=== PATIENT | male | born 1955 | race Caucasian/White ===

== ENCOUNTER 2025-01-25 13:19 | Outpatient (AMB) | payer MEDICARE, MEDICAID, SELFPAY ==
--- NOTE | 2025-01-25 13:22 | A.OFFVIS_ITS ---
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 He was doing ok. No seizure reported. He is presenting for follow-up management of tremor. The patient experiences significant shaking, particularly of the head, which is exacerbated when feeling put on the spot and during activities such as eating, making it difficult to hold utensils or a cup. The patient has a history of unilateral weakness, which causes the neck to twist and the body to lean to one side. Past medical history is significant for atrial fibrillation, for which the patient has a pacemaker, and manageable COPD. The patient continues to smoke. Current medications include baclofen taken as two pills at bedtime, diazepam 2 mg which helps with sleep and spasticity but wears off around 3 a.m., levetiracetam, and gabapentin. Review of Systems Narrative - Neurological: Reports head shaking and hand tremor, worse with action such as eating. - Reports difficulty sleeping, with awakenings around 3 or 3:30 a.m. - Reports being unable to walk or use an arm. - Respiratory: Reports COPD symptoms are about the same and manageable. - Denies shortness of breath. - Cardiovascular: Denies symptoms, with a history of AFib and a pacemaker. Physical Exam Neuro Other: Mental Status: He is alert and awake with normal spontaneity and fluency of speech. Comprehension is intact. Cranial Nerves: CN II: Visual regalado full to confrontation, visual acuity intact. CN III, IV, : Pupils equal, round, reactive to light and accommodation. Extraocular movements are normal. CN V: Facial sensation is normal. CN VII: Facial movements symmetrical. CN VIII: Hearing intact to bedside conversation is normal. CN IX, X: Palate elevates symmetrically. CN XI: Shoulder shrug and head turn symmetrical. CN XII: Tongue midline without atrophy or fasciculations. Motor: Severe left hemiparesis. He is in a wheelchair. Moderate head in right hand tremor. Speech: Normal; no dysarthria or tremor. Assessment & Plan Assessment & Plan (1) Complex partial seizure disorder: Comment: MRI brain WO at [facility] in Mar 2019: large R MCA infarct involving parietal lobe. Code(s): G40.209 - Localization-related (focal) (partial) symptomatic epilepsy and epileptic syndromes with complex partial seizures, not intractable, without status epilepticus Category: Medical (2) Left hemiparesis: Code(s): G81.94 - Hemiplegia, unspecified affecting left nondominant side Category: Medical (3) Cerebral infarction: Code(s): I63.9 - Cerebral infarction, unspecified Category: Medical Qualifiers: Cerebral infarction mechanism: embolism Precerebral and cerebral artery: middle cerebral artery Laterality of affected vessel: right Qualified Code(s): I63.411 - Cerebral infarction due to embolism of right middle cerebral artery (4) Spasticity: Code(s): R25.2 - Cramp and spasm Category: Medical (5) Insomnia: Code(s): G47.00 - Insomnia, unspecified Category: Medical Qualifiers: Insomnia type: due to medical condition Qualified Code(s): G47.01 - Insomnia due to medical condition (6) Tremor: Code(s): R25.1 - Tremor, unspecified Category: Medical (7) Neuropathic pain: Code(s): M79.2 - Neuralgia and neuritis, unspecified Category: Medical Plan Impression: 1. Left hemiparesis from large right middle cerebral artery ischemic infarct likely due to cardiac source of embolism from atrial fibrillation 2. 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 Insomnia and due to stroke and associated problems 5. Moderate head and right hand tremor Recommendations: 1. Levetiracetam 750 mg 1 twice a day for seizure 2. Diazepam 5 mg at bedtime for spasticity and sleep 3. Baclofen 20 mg two at bedtime for spasticity 4. Gabapentin 600 mg 4 times a day for pain 5. Propranalol 10mg bid for tremor I explained to the patient that head shaking is very difficult to control. We discussed initiating a trial of medication to improve quality of life, specifically related to the tremor interfering with eating. I have prescribed a low dose of propranolol 10 mg twice daily and advised the patient to take it before breakfast and dinner. I counseled the patient that this is the first of three potential medications we can try and to let me know if there is any shortness of breath, a cherry side effect to monitor given the history of COPD. I also assured the patient that these medicines are not addictive. We also addressed the patient's report that diazepam 2 mg is not lasting long enough for sleep. I will increase the dose to 5 mg. I advised the patient that driving is not recommended. I deferred the question about portable oxygen to the patient's lung doctor. We will follow up in six months. Medications: New diazepam (Valium) 5 mg PO BEDTIME PRN 90 tabs 1RF sleep propranolol 10 mg PO BID 180 tabs 0RF Refilled levetiracetam 750 mg PO BID 180 tabs 0RF baclofen 20 mg orally 1-2 daily as needed; 360 tabs 0RF gabapentin 600 mg orally 4 times a day; 360 tabs 1RF Coding Level of Care Code Est Pt Level 4 (26656) Diagnoses Complex partial seizure disorder G40.209 Left hemiparesis G81.94 Cerebral infarction due to embolism of right middle cerebral artery I63.411 Cerebral infarction mechanism: embolism Precerebral and cerebral artery: middle cerebral artery Laterality of affected vessel: right Spasticity R25.2 Insomnia due to medical condition G47.01 Insomnia type: due to medical condition Tremor R25.1 Neuropathic pain M79.2 Time Spent (min) 45
--- OUTSIDE RECORDS SUMMARY | 2025-01-25 17:10 | XMS_ITS ---
Author Organization [address] [facility] Address [address] [place] [address] Phone Care Team Providers Care Pass Worker Name Role Phone Vi Serrano MD Primary Care Pr ovider Chronic Care Management Status:Ongoing (Active) Start date:01/03/2025 Enrollment date:01/04/2025 Enrollment reason:Referred by provider Related social drivers of health:[facility] Literacy, Social Isolation Case Team Name Relationship Phone Cheyenne Simpson RN(Responsible Staff) Care Leticia anaya Continued Care and Services Coordination
--- OUTSIDE RECORDS SUMMARY | 2025-01-25 17:10 | XMS_ITS | Data Portability ---
Author Organization [facility], Main Office Address [address] [place] [address] Care Team Providers Care Geological Manager Name Role Phone TRISTAN SHERIFF - 2ND FLOOR OTHER Assessment Encounter Date Assessment Date Assessment LastModified by Organization Details LastModified Time 11/26/2018 11/26/2018 10/13/18- wbc 9.8, h/h 12.5/39.7, plt 257, na 140, k 4.2, bun 13, creat 0.86 Not available 11/26/2018 12:32:04 12/04/2018 12/04/2018 10/13/18 WBC 9.8, Hgb 12.5, Hct 39.7, Plt 257, Na 140, K 4.2, BUN 13, Swabber 0.86 [email or web address] Not available 12/04/2018 15:07:45 12/30/2018 12/30/2018 10/13/18 WBC 9.8, Hgb 12.5, Hct 39.7, Plt 257, Na 140, K 4.2, BUN 13, Swabber 0.86 [email or web address] Not available 12/30/2018 08:48:23 Plan of Treatment Reminders Order Date Submit Date Provider Last Modified By Organization Details Last Modified Time Details Appointments None record ed. Lab None record ed. Referral None record ed. Procedures None record ed. Surgeries None record ed. Imaging None record ed. Medication Orders None record ed. Patient TargetsNo targets recorded. Patient InstructionsNo instructions recorded. Reason for Referral None Reported. Problems Name Problem SNOMED Code Status Onset Date Resolution Date Notes Provider Name and Address Organization Details Recorded Time Sepsis 89646060 Active 2018 pseudomon as aeruginos a infection JOSE BARRIOS [address], [address], [place], [address] , [place] [employer] 9 08:45:49 Acute urinary tract infection 703646333 Active 2018 JOSE BARRIOS [address], [address], [place], [address] , [facility] [employer] [facility] 9 08:45:31 Atrial fibrillat ion 71854090 Active 2018 JOSE BARRIOS [address], [address], [place], [address] , [facility] [employer] 9 08:46:50 Cerebrova scular accident 418790939 Active 2018 JOSE BARRIOS [address], [address], [place], [address] , [employer] 9 08:46:55 Gastroeso phageal reflux disease without esophagit is 545767850 Active 2018 JOSE BARRIOS [address], [address], [place], [address] , [facility] 9 08:53:36 Depressiv e disorder 24649086 Active 2018 JOSE BARRIOS [address], [address], [place], [address] , [employer] 9 08:53:46 Cardiac pacemaker in situ 714815003 Active 2018 JOSE BARRIOS [address], [address], [place], [address] , [facility] 9 08:55:15 Smoker 21185711 Active 2018 JOSE BARRIOS [address], [address], [place], [address] , [employer] 9 09:52:59 Heart block 713914598 Active 2018 William Georges MD [address], [address], [place], [address] , [facility] 9 11:08:03 Pain 43093392 Active 2018 JOSE BARRIOS [address], [address], [place], [address] , [employer] 9 09:30:18 Pain of left shoulder joint 95336084374 750709 Active 2018 [facility] [employer] 9 12:28:31 Problem Notes None recorded. Medical Equipment None Reported. Allergies Allergen ID Allergen Name Allergen Category Reaction Reaction Severity Criticality Documentation Date Start Date Code Code System Note Provider Name and Address Organization Details Recorded Time 39451 oxaprozin medicatio n Not available Not available Not available 09/23/2018 38913 RxNorm ARBEN BARRIOSP [address], [address], [place], [address], [facility] 9 08:32:24 Medications Not known to be on any medication Vitals Date Recorded Heart rate Systolic And Diastolic Provider Name and Address Organization Details Last Updated DateTime 11/26/2018 74 /min 118/54 mm[Hg] Ila Bah [facility] [employer] 11/26/2018 12:24:03 Date Recorded Body temperature Heart rate Respiratory rate Oxygen saturation Systolic And Diastolic Provider Name and Address Organization Details Last Updated DateTime 9 98.6 [degF] 76 /min 18 /min 96 % 117/71 mm[Hg] JOSE BARRIOS [address] [place] [address], [address], [place], [address], [facility] 9 09:54:14 Date Recorded Body temperature Heart rate Respiratory rate Oxygen saturation Systolic And Diastolic Provider Name and Address Organization Details Last Updated DateTime 9 97.5 [degF] 88 /min 20 /min 97 % 118/66 mm[Hg] JOSE BARRIOS [address], [address], [place], [address], [facility] 9 15:06:00 Date Recorded Body temperature Heart rate Respiratory rate Oxygen saturation Systolic And Diastolic Provider Name and Address Organization Details Last Updated DateTime 9 98 [degF] 74 /min 18 /min 96 % 134/72 mm[Hg] JOSE BARRIOS [address], [address], [place], [address], [facility] [employer] 9 12:05:19 Date Recorded Body weight Heart rate Respiratory rate Body temperature Oxygen saturation Systolic And Diastolic Provider Name and Address Organization Details Last Updated DateTime 9 73427.1 2 g 82 /min 17 /min 98 [degF] 96 % 122/70 mm[Hg] JOSE BARRIOS [address], [place], [address], [facility] 9 08:17:51 Social History Question Answer Notes LastModified by Ebix Details LastModified Time Tobacco Smoking Status Former [facility]oker Not Available [facility] 12/28/2019 03:13:22 Do You Have An Advance Directive? Yes FULL CODE-undecide d About Dialysis And Nutrition-may Use Hydration [id number] Information not available 12/28/2019 How Much Tobacco Do You Chew? None [id number] Information not available 12/28/2019 Do You Have A Medical Power Of Player Development Executive? No [id number] Information not available 12/28/2019 What Was The Date Of Your Most Recent Tobacco Screening? 09/23/2018 [id number] Information not available 12/28/2019 How Much Tobacco Do You Smoke? 1 PPD [id number] Information not available 12/28/2019 How Many Years Have You Smoked Tobacco? 30 [id number] Information not available 12/28/2019 Sex: Unknown Functional Status Question Answer Note LastModified by Ebix Details LastModified Time What is your level of alcohol consumption? Occasional [id number] Information not available 12/28/2019 Mental Status None recorded. Family History Nothing Reported. Medical History No medical history recorded. Past Encounters Encounter ID Performer Location Encounter Start Date Encounter Closed Date Diagnosis/Indication Diagnosis SNOMED-CT Code Diagnosis ICD10 Code Diagnosis IMO Codes Diagnosis Note [id number] [facility] [address] [place] [address] 09/23/2018 08:29:38 10/01/2018 16:17:56 Sepsis 96553559 A41.52 ciprofloxa [place] 500 mg bid x 7 daysprobio tic bid x 14 daysmonito r Acute urin carol ann tract infection 221673300 N30.00 same as abovemonit or for resolution Cerebrovas cular accident 281435315 I63.411 fairly recentleft sided paralysise liquis 5 mg bidASA 81 mg qdatorvast atin 80 mg qdneuronti n 300 mg tid-will increase night dose to 600 mg q hs due to increased paindiscus sed risk vs benefit of neurontin with patientbac lofen 5 mg tid prn-c/o pain and will schedule for nowmonitor pain Atrial fibrillation 4943 6004 I48.2 eliquis 5 mg bidASA 81 mg qdmonitor Depressive disorder 3548 9007 F32.89 fluoxetine 20 mg qddiscusse d risk vs benefit of fluoxetine with patientmon itor moodpsych eval and treat prn Gastroesop hageal reflux disease without esophagitis 474543180 K21.9 pantoprazo le 40 mg qdmonitor for symptoms Cardiac pa cemaker in situ 854771779 Z95.0 monitor Smoker 44080881 F17.210 encouraged to not smokecravi ng themif he agrees he can have nicotine patch 21 mcg qdmonitor [id number] William Georges MD [address] [address] 09/25/2018 11:00:47 10/01/2018 16:21:58 Sepsis 09522889 A41.52 See HPIsepsis most likely secondary to UTI with cx positive for pseudomona sInitially treated with zosyn then transition ed to cefepime then finally cipro to complete courseadd probioticm onitor to resolution follow renal function Cerebrovas cular accident 879706898 I63.311 recent right MCA CVAleft hemiparesi s - DensePT OT Eval and treatlipit or 80 mg qdASA 81 mg qdbaclofen 5 mg tid prn muscle spasmgabap entin 300 mg tidmonitor fall risk Heart block 884662268 I4 4.69 known heart blockpacer in placemonit or rate Atrial fibrillation 4943 6004 I48.0 eliquis 5 mg bidmonitor for rate control Gastroesop hageal reflux disease without esophagitis 190239385 K21.9 pantoprazo le 40 mg qdmonitor for sx control Depressive disorder 3548 9007 F33.8 fluoxetine 20 mg qdcontinue monitor need to titrate med [id number] JOSE BARRIOS [facility] [address] [address] 10/02/2018 15:17:49 10/06/2018 12:43:33 Atrial fibrillation 87311977 I48.2 eliquis 5 mg bidASA 81 mg qdmonitor Gastroesop hageal reflux disease without esophagitis 213283627 K21.9 pantoprazo le 40 mg qdmonitor for symptoms Cerebrovas cular accident 153369577 I63.411 left sided paralysise liquis 5 mg bidASA 81 mg qdatorvast atin 80 mg qdneuronti n 300 mg bid and 600 mg q hsbaclofen 5 mg tidmonitor pain [id number] JOSE BARRIOS [facility] [address] 10/08/2018 09:03:34 10/12/2018 14:09:38 Pain 06689785 G57.82 patient with s/p stroke pain on left sidehad added neurontin and been increasing slowlyhas oxycodone 5 mg q 4 hrs prnhe states oxycodone doesn't help muchwill increase neurontin to 600 mg bid and 1000 mg q hsmonitor for decreased pain may need to add another type of medication [id number] Ila Bah NP [facility] [address] [address] 10/10/2018 12:57:57 10/12/2018 14:48:36 Pain 55375367 G57.82 patient with s/p stroke pain on left side Pt currently on gabapentin 600mg bid and 1000mg at night, will take away the afternoon dose of 600mg due to pt's increased lethargy and pt's pain appears to be managed well without his afternoon dose. continue oxycodone 5 mg q 4 hrs prnmonitor [id number] JOSE BARRIOS [facility] [address] 10/12/2018 08:51:45 10/14/2018 14:45:29 Acute conjunctivitis 41082668 H10.221 will start claritin 10 mg qdwill also add erythromyc in oint 1/2 inch to right eye tid x 5 daysmonito r for resolution [id number] JOSE BARRIOS [facility] [address] 10/16/2018 09:46:18 10/19/2018 14:16:29 Atrial fibrillation 74144153 I48.2 eliquis 5 mg bidASA 81 mg qdmonitor Cerebrovas cular accident 978327587 I63.411 left sided paralysise liquis 5 mg bidASA 81 mg qdatorvast atin 80 mg qdneuronti n 600 mg qd and 1000 mg q hsbaclofen 5 mg tidmonitor pain Pain 24680980 G57.82 patient with s/p stroke pain on left sideoxycod one 5 mg q 4 hrs prnhe states he needs his oxycodonen eurontin to 600 mg qd and 1000 mg q hsdiscusse d other options Depressive disorder 9911 3641 F32.89 fluoxetine 20 mg qdmonitor moodpsych eval and treat prn Gastroesop hageal reflux disease without esophagitis 387715653 K21.9 pantoprazo le 40 mg qdmonitor for symptoms [id number] [address] 10/28/2018 13:22:47 11/04/2018 08:27:32 Atrial fibrillation 24142338 I48.2 eliquis 5 mg bidASA 81 mg qdmonitor Gastroesop hageal reflux disease without esophagitis 153141145 K21.9 pantoprazo le 40 mg qdmonitor for symptoms Pain 26396572 G57.82 patient with s/p stroke pain on left sideoxycod one 5 mg q 4 hrs prnneuront in to 600 mg qd and 1000 mg q hsbaclofen 5 mg tidmonitor Depressive disorder 5482 9437 F32.89 fluoxetine 20 mg qdmonitor moodpsych eval and treat prn [id number] JOSE BARRIOS [facility] [address] 11/06/2018 09:03:56 11/19/2018 15:19:09 Pain 00271498 G57.82 patient with s/p stroke pain on left sideoxycod one 5 mg q 4 hrs prnneuront in to 600 mg qd and 1000 mg q hsbaclofen 5 mg tidmonitor Gastroesop hageal reflux disease without esophagitis 634923388 K21.9 pantoprazo le 40 mg qdmonitor for symptoms Depressive disorder 3548 9007 F32.89 fluoxetine 20 mg qdmonitor moodpsych eval [place] treat [place]n [id number] Cleopatra Diaz MD [facility] [address] [address] 11/13/2018 08:43:58 11/20/2018 12:22:06 Cerebrovascular accident 217931330 I63.00 PT/OTASA 81 mg dailyatorv astatin 80 mg dailywill monitor Gastroesop hageal reflux disease without esophagitis 099635620 K21.9 pantoprazo le 40 mg dailywill monitor Depressive disorder 3548 9007 F32.89 fluoxetine 20 mg dailywill monitor Atrial fibrillation 4943 6004 I48.2 Eliquis 5 mg bidwill monitor Pain 03878245 R52 baclofen 5 mg tid - will increase to 10 mg tid to help control paingabape ntin 1000 mg at hs, 600 mg in morningoxy codone 5 mg q4h prnwill monitor [id number] JOSE BARRIOS [facility] [address] [address] 11/25/2018 10:35:23 12/03/2018 12:14:22 Pain of left shoulder joint 0198921595 9648614 M25.512 will order x-rayhe has chronic left sided stroke pain but states this is different and won't do therapy until it is x-rayedwai t for results [id number] Ila Bah NP [facility] [address] [address] 11/26/2018 12:19:26 12/02/2018 16:18:29 Pain of left shoulder joint 8269922674 4443244 M25.512 xray on 11/25/18 showing mild degenerati ve joint changes. no fx. Discussed with pt and he will continue to work with therapy- will increase oxy to q6h as above. Cerebrovas cular accident 762005435 I63.00 PT/OT to maximize function. To medicate for pain prior to working with PT as above.ASA 81 mg dailyatorv astatin 80 mg dailywill monitor Pain 03139732 R52 see HPI will continue oxycodone 5mg q8 prn- decrease to q12 prn on 11/28/18 and plan is to DC on discharge. Pt understand s this is the plan. continue: baclofen 10 mg tidgabapen tin 1000 mg at hs, 600 mg in morningwil l monitor [id number] JOSE BARRIOS [facility] [address] 11/30/2018 09:53:42 12/03/2018 12:42:26 Pain 28637702 G57.82 patient with s/p stroke pain on left sideoxycod one 5 mg q bid prnneuront in to 600 mg qd and 1000 mg q hsbaclofen 10 mg tidc/o increased spasms-nixon l increase baclofen to 15 mg tidhe agrees with [facility] [place] [id number] JOSE BARRIOS [address] [address] 12/04/2018 08:42:55 12/08/2018 16:08:55 Pain 47549972 G57.82 patient with s/p stroke pain on left sideoxycod one 5 mg q bid prn x 1 week then will be qd prnneuront in to 600 mg qd and 1000 mg q hsbaclofen 15 mg tidhad pain clinic appt today-julissa garg notes but he said they discussed a baclofen pump Gastroesop hageal reflux disease without esophagitis 674135383 K21.9 pantoprazo le 40 mg qdmonitor for symptoms Depressive disorder 3548 9007 F32.89 fluoxetine 20 mg qdmonitor moodpsych eval and treat prn Atrial fibrillation 4943 6004 I48.20 eliquis 5 mg bidASA 81 mg qdmonitor Cerebrovas cular accident 371008925 I63.411 left sided paralysise liquis 5 mg bidASA 81 mg qdatorvast atin 80 mg qdneuronti n 600 mg qd and 1000 mg q hsbaclofen 15 mg tidmonitor pain Smoker 06148507 F17.210 nicotine patch 7 mcg qdmonitor [id number] JOSE BARRIOS [address] [address] 12/28/2018 12:03:34 12/30/2018 11:27:50 Pain 49114695 G57.82 patient with s/p stroke pain on left sideoxycod one 5 mg qd-tapered offneuront in to 600 mg qd and 1000 mg q hsbaclofen 15 mg tidbaclofe n pump is what patient is asking forjamari watt he needs to be see by a psychiatri [facility] outpatient behavioral health-ref erral was sent by pain cliniche will be dischargin g friday so he will need to followup with pain clinic [id number] JOSE BARRIOS [facility] [address] 12/30/2018 08:11:26 01/01/2019 15:58:28 Cerebrovascular accident 482377954 I63.411 left sided paralysise liquis 5 mg bidASA 81 mg qdatorvast atin 80 mg qdneuronti n 600 mg qd and 1000 mg q hsbaclofen 15 mg tidAFO to left foot qdfollow with PCP Atrial fibrillation 4943 6004 I48.20 eliquis 5 mg bidASA 81 mg qdfollow with PCP Gastroesop hageal reflux disease without esophagitis 733564279 K21.9 pantoprazo le 40 mg qdfollow with PCP Depressive disorder 3548 9007 F32.89 fluoxetine 20 mg qdfollow with PCP Cardiac pa cemaker in situ 223331652 Z95.0 follow with cardio as needed Smoker 62788122 F17.210 nicotine patch 7 mcg qdfollow with PCP patient plans on smoking when leaving so will need to discontinu e patch Heart block 113509648 I4 5.5 pacemaker in placefollo w with cardio as needed Pain 36244294 G57.82 patient with s/p stroke pain on left sideoxycod one 5 mg qd-tapered off and discontinu edneuronti n to 600 mg qd and 1000 mg q hsbaclofen 15 mg tidpain pump is what patient is asking forjamari watt he was seen by a psychiatri st-through [facility] outpatient [facility] health-ref erral was sent by pain cliniche will need to followup with pain clinic Health Concerns Section Related Observation LastModified by Organization Detai ls LastModified Time None Recorded Concern Status LastModified by Organization Details LastModified Time None Recorded Advance Directives Directive Y: FULL CODE-undecided about dialysis and nutrition-may use hydration Payers Insurance Date Sequence Insurance Name Policy Number Policy Lubin Covered Member ID Lubin Member ID Guarantor Name 02/04/2019 1 [employer] - [employer] [facility] (HMO) [id number] Angel Page [id number] Angel Page 02/04/2019 1 MEDICAID[place]: [facility] Angel Page [id number] Angel Page Notes Date Note Type Note Provider Name and Address Organization Details Recorded Time 11/26/2018 text/html ROS as noted in the HPI 63 year old male seen today for acute rounding visit. Pt is s/p CVA and sepsis. Pt asking to be seen because his pain feels uncontrolled. Recent xray of pt's left shoulder showing only mild degenerative changes and no fracture or acute process. Nursing staff reporting that pt often tells them he is in a tremendous amount of pain, and then medicate him with tylenol and he feels better for the rest of the day. As I speak with the pt he tells me that working with therapy increases his pain but also his stress, and he understands that he can get anxious sometimes and that it likely contributes to his sensation of pain as well. I also had a discussion with the pt about needing to DC his oxy prior to his discharge from here which may be on 12/01/18 as his therapy ends on 11/30, as oxy is not a drug to be taken chronically longterm and he is also being well managed with tylenol. Pt does not appear to be in any acute distress when I speak with him, and he also appears to feel relieved after getting tylenol from the nurse. Medical history is remarkable for hx CVA, GERD, neuropathy LLE, depression, hx heart block s/p pacer, afib, tobacco use disorder. MOLST: full code Ila hwang [place] - [facility] 11/26/2018 13:39:58 11/30/2018 text/html A 63 year old male being seen for a acute rounding visit. Patient has a pain clinic appt on friday at [facility]. Was considering amitriptyline but will hold off to see what pain clinic says. He continues his taper of oxycodone. Discussed this with him and and they agree. Will however increase his baclofen to 15 mg tid due to increased left leg cramps. JOSE BARRIOS [address], [address], [place], [address], [employer] 11/30/2018 11:11:18 12/04/2018 text/html A 63 year old male being seen for a routine rounding visit (90 day). He has been doing well. Baclofen was increased due to increase in cramps and appears better. He went to the pain clinic today and they are discussing a baclofen pump with him. Note not sent here yet. Oxycodone is being tapered down without difficulty. in today and goes on appts with him. Goal is discharge soon. Staff notes no concerns at this time. JOSE BARRIOS [address], [address], [place], [address], [employer] 12/04/2018 15:15:55 12/28/2018 text/html A 63 year old male being seen for a acute rounding visit. Asked to talk with him about the pain pump he is wanting. He has to follow up with pain clinic for a psych evaluation prior to getting the trial pain pump. Will have follow up with this. JOSE BARRIOS [address], [address], [place], [address], [employer] 12/28/2018 12:30:44 12/30/2018 text/html A 63 year old male being seen for a discharge summary. Patient was at [place] for rehab due to recent CVA. He developed fevers and rigors. He was found to have a uti from pseudomonas. He was also noted to have positive blood cultures for pseudomonas. He was treated initially with zosyn then switched to cefepime. Upon discharge he was transitioned to cipro. He had episodes of diarrhea and was placed on probiotic. He was having left sided nerve pain from stroke so they were trialing medication adjustments. Left arm swelling and ultrasound was negative for DVT. He was sent here for continued rehab. Of note while in hospital prior to [facility] he had severe heart block and received a pacemaker. He has done well with therapy but continues to have left sided stroke pain. Tried Neurontin increased doses but continued to want to use narcotics. Weaned off narcotics and sent to pain clinic at [facility]. He had psych evaluation from [facility] already in order to get him in for a trial pain pump. He will be in a new condo that is wheel chair accessable. He continues to have swelling on left arm and leg. Medical history of GERD, CVA, depression, smoker, heart block, pacemaker, nerve pain and afib. JOSE BARRIOS [address], [address], [place], [address], [facility] [employer] 12/30/2018 09:41:45
--- OUTSIDE RECORDS SUMMARY | 2025-01-25 17:10 | XMS_ITS | Encounter Summary ---
Author Organization [facility] Address [address] [place] [address] Care Team Providers Care Anglesmith Helper Name Role Phone Vi Serrano MD Primary Care Pr ovider Reason for Referral * Imaging (Routine) - Authorized Specialty Diagnoses / Procedures Referred By [employer] Referred To Contact Radiology Diagnoses Post-traumatic osteoarthritis of left elbow Procedures MR Elbow wo Contrast Left Vi Serrano MD [address] [place] [address] Phone: tel: fax: [address] Phone: tel: Referral ID Status Reason Start Date Expiration Date V isits Requested Visits Authorized [id number] Authorized 12/28/2024 12/28/2025 1 1 Encounter Details Date Type Department Care Team ([facility] st Contact Info) Description 12/28/2024 Results Follow-Up Adult Medicine [address] [phone] Vi Serrano MD [address] [place] [phone] Social History Tobacco Use Types Packs/Day Years Used Date Smoking Tobacco: Former Cigarettes 1 52.9 S tarted: 03/03/1972 Smokeless Tobacco: Never Alcohol Use Standard Drinks/Week Comments Yes 0 (1 standard drink = 0.6 oz pur e alcohol) Housing Instability Answer Date Recorde d Are you worried that in the next 2 months you may not have stable housing? No 02/15/2024 Food Access & Nutrition Answer Date Rec orded Do you have access to a vari ety of food including fruits and vegetables? Yes 02/15/2024 Access to Healthcare Answer Date Record ed Within the last 3 months, ho w many times did you visit the emergency department for your medical care? 0 02/15/2024 Health Literacy Answer Date Recorded How often do you need to hav e someone help you when you read instructions, pamphlets, or other written material from your doctor or pharmacy? Always 02/15/2024 Caregiver: How often do you need to have someone help you when you read instructions, pamphlets, or other written material from your doctor or pharmacy? Not on file 02/15/2024 Financial Risk Answer Date Recorded How hard is it for you to pa y for the very basics like food, housing, medical care, and air conditioning / heating? Not very hard 02/15/2024 Transportation Answer Date Recorded Has the lack of transportati on kept you from meetings, work, or from getting things needed for daily living? No Has the lack of transportati on kept you from medical appointments or from getting medications? No 02/15/2024 Social Isolation Answer Date Recorded How often do you feel lonely or isolated from those around you? Sometimes 02/15/2024 Food Risk Answer Date Recorded Within the past 12 months we worried whether our food would run out before we got money to buy more. Never true 02/15/2024 Within the past 12 months th e food we bought just didn't last and we didn't have money to get more. Never true 02/15/2024 Dependent Care Answer Date Recorded Do you need help finding or paying for care for your loved ones. For example, salesperson children's shoes or elderly care for an older adult? No 02/15/2024 Education Answer Date Recorded Do you think completing more education or training, like finishing a GED, going to college, or learning a trade, would be helpful for you? No 02/15/2024 Employment and Income Answer Date Recor ded During the last four weeks, have you been actively looking for work? No 02/15/2024 Living Situation Answer Date Recorded What is your living situation? Unrecognized valu e 02/15/2024 Sex and Gender Information Value Date Recorded Sex Assigned at Male 07/19/2024 12:15 PM EDT Legal Sex Male 2:28 AM EST Gender Identity Male 07/19/2024 12:15 PM EDT Sexual Orientation Not on file documented as of this encounter Plan of Treatment Upcoming Encounters Date Type Department Care Team (Late st Contact Info) Description 03/31/2025 12:45 PM EST Office Visit Adult Medicine [facility] [address] [place] [address] Vi Serrano MD [address] [place] [address] 07/20/2025 1:00 PM EDT Office Visit Pulmonology [address] [place] [phone] Reza Pemberton MD [address] [place] [phone] Scheduled Orders Name Type Priority Associated Diagnoses Orde r Schedule Sedimentation rate Lab Routine Post-traumatic osteoarthritis of left elbow 1 Occurrences starting 12/28/2024 until 12/28/2025 C-reactive protein Lab Routine Post-traumatic osteoarthritis of left elbow 1 Occurrences starting 12/28/2024 until 12/28/2025 Rheumatoid factor Lab Routine Post-traumatic osteoarthritis of left elbow 1 Occurrences starting 12/28/2024 until 12/28/2025 Cyclic citrullinated peptide, IgG and IgA Lab Routine Post-traumatic osteoarthritis of left elbow 1 Occurrences starting 12/28/2024 until 12/28/2025 TIMUR IFA with titer and pattern Lab Routine Post-traumatic osteoarthritis of left elbow 1 Occurrences starting 12/28/2024 until 12/28/2025 MR Elbow wo Contrast Left Imaging Routine Post-traumatic osteoarthritis of left elbow Expected: 12/28/2024, Expires: 12/28/2025 documented as of this encounter Visit Diagnoses Diagnosis Post-traumatic osteoarthritis of left elbow documented in this encounter Additional Health Concerns Assessment Noted Time PHQ-9 Depression Total Score: 0 06/30/19 25 11:25 AM EDT documented as of this encounter Care Teams Anglesmith Helper Relationship Specialty Start Date End Date Vi Serrano MD [address] [place] [address] PCP - General Internal Medicine 09/25/21 documented as of this encounter
--- OUTSIDE RECORDS SUMMARY | 2025-01-25 17:10 | XMS_ITS | Data Portability ---
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 Family called PCP and they would like blood work done. Stool studies ordered by PCP. Patient denies fever, nausea, vomiting, abdominal pain, hematochezia or melena. He denies any urinary symptoms. no blood or black stools. Patient reports good appetite and denies any change in appetite. Patient takes sang Percocet at night for pain and this is unchanged. One month ago the patient was taking Cephalexin 500mg TID for 10 days for a toe infection. Exam: Patient hemodynamically stable non toxic appearing heart RRR without murmur Lungs CTA with slight decreased sounds in bases appropriate bowel sounds abdomen non tender throughout DDx considered, but not limited to: cdiff gastroenteritis diverticulitis-tadeo bt as patient is afebrile without any abdominal pain GI bleed-doubt as HH stable and family denies any hematochezia or melena Work up/Results: chem 8 without any sig abnormalities other than hyperglyemia CMP, CBC, hepatic panel and hemoglobin A1C pending covid test pending Plan/Discussion: Patient is slightly hypoxic at 94% likely due to atelectasis. Patient reports he has been spending more time in bed due to the diarrhea. The patient has an incentive spirometer and I encouraged him to use this. Patient denies any cough or sob. He is non toxic appearing, afebrile and without any pain on abdominal exam. Lowsuspicion for intra abdominal pathology. Chem 8 performed on scene demonstrating hyperglycemia. Hemoglobin A1C added to orders as this will need to be followed by PCP. Low suspicion for GI bleed as HH stable. Stool studies ordered by PCP and family felt comfortable collecting these. concern for Cdiff as the patient has been on abx. Family asked that the patient also be assessed for atypical presentation of COVID. COVID test performed. Patient will continue to isolate at home. Precautions given that if the patient develops a fever, abdominal pain or blood in his stools to again seek care. Patient and family verbalized understanding and were agreeable to overall plan. Time on scene 1:06 Not available 04/28/2020 15:07:22 Plan of Treatment Reminders Order Date Submit Date Provider Last Modified By Organization Details Last Modified Time Details Appointments None recorded. Lab CBC w/ auto diff 2020 DORIS [facility] (Centralized Electronic Ordering - All Locations), Patient Can Go To The Location Of Their Choice, 18:20:04 BMP + ionized calcium, serum or plasma 2020 [facility], [address] [place] [address], [phone], 14:30:49 hepatic function panel, serum 2020 [facility]), Patient Can Go To The Location Of Their Choice, 15:24:56 CMP, serum or plasma 2020 [facility] (Centralized Electronic Ordering - All Locations), Patient Can Go To The Location Of Their Choice, 18:39:20 SARS CoV 2 RNA (COVID-19), QL, 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 Procedures None recorded. Surgeries None recorded. Imaging None recorded. Medication Orders None recorded. Patient TargetsNo targets recorded. Patient InstructionsNo instructions recorded. Reason for Referral None Reported. Results Created Date Observation Date Name Description Value Unit Range Abnormal Flag Note LastModifiedBy Organization Detail LastModifiedTime 04/28/1904/28/2020 CBC w/ auto diff WBC 8.7 K/mm3 (4.0-1 1.0) Not Available [facility] (Centralized Electronic Ordering - All Locations) Patient Can Go To The Location Of Their Choice, 04/28/2020 18:20:04 04/28/1904/28/2020 CBC w/ auto diff RBC 4.15 M/mm3 (4.70- 6.10) low Not Available [facility] (Centralized Electronic Ordering - All Locations) Patient Can Go To The Location Of Their Choice, 04/28/2020 18:20:04 04/28/1904/28/2020 CBC w/ auto diff HGB 13.3 gm/dL (13.7- 17.1) low Not Available [facility] (Centralized Electronic Ordering - All Locations) Patient Can Go To The Location Of Their Choice, 04/28/2020 18:20:04 04/28/1904/28/2020 CBC w/ auto diff HCT 40.7 % (40.5- 50.0) Not Available [facility] (Centralized Electronic Ordering - All Locations) Patient Can Go To The Location Of Their Choice, 04/28/2020 18:20:04 04/28/1904/28/2020 CBC w/ auto diff MCV 98.1 fL (80.0- 94.0) high Not Available [facility] (Centralized Electronic Ordering - All Locations) Patient Can Go To The Location Of Their Choice, 04/28/2020 18:20:04 04/28/1904/28/2020 CBC w/ auto diff MCH 32.0 pg (27.0- 34.0) Not Available [facility] (Centralized Electronic Ordering - All Locations) Patient Can Go To The Location Of Their Choice, 04/28/2020 18:20:04 04/28/1904/28/2020 CBC w/ auto diff MCHC 32.7 g/dL (33.0- 37.0) low Not Available [facility] (Centralized Electronic Ordering - All Locations) Patient Can Go To The Location Of Their Choice, 04/28/2020 18:20:04 04/28/1904/28/2020 CBC w/ auto diff plt 213 K/mm3 (150-4 60) Not Available [facility] (Centralized Electronic Ordering - All Locations) Patient Can Go To The Location Of Their Choice, 04/28/2020 18:20:04 04/28/1904/28/2020 CBC w/ auto diff RDW-SD 46.5 fL (<47.0 ) Not Available [facility] (Centralized Electronic Ordering - All Locations) Patient Can Go To The Location Of Their Choice, 04/28/2020 18:20:04 04/28/1904/28/2020 CBC w/ auto diff MPV 10.1 fL (9.4-1 2.4) Not Available [facility] (Centralized Electronic Ordering - All Locations) Patient Can Go To The Location Of Their Choice, 04/28/2020 18:20:04 04/28/1904/28/2020 CBC w/ auto diff automated NRBC 0.0 #/100 _WBC' s Not Available [facility] (Centralized Electronic Ordering - All Locations) Patient Can Go To The Location Of Their Choice, 04/28/2020 18:20:04 04/28/1904/28/2020 CBC w/ auto diff abs. NRBC 0.0 K/mm3 Not Available [facility] (Centralized Electronic Ordering - All Locations) Patient Can Go To The Location Of Their Choice, 04/28/2020 18:20:04 04/28/1904/28/2020 CBC w/ auto diff neut # 6.0 K/mm3 (1.3-7 .0) Not Available [facility] (Centralized Electronic Ordering - All Locations) Patient Can Go To The Location Of Their Choice, 04/28/2020 18:20:04 04/28/19 21 04/28/2020 CBC w/ auto diff lymph # 1.5 K/mm3 (0.8-3 .1) Not Available [facility] (Centralized Electronic Ordering - All Locations) Patient Can Go To The Location Of Their Choice, 04/28/2020 18:20:04 04/28/1904/28/2020 CBC w/ auto diff mono# 0.7 K/mm3 (0.4-1 .3) Not Available [facility] (Centralized Electronic Ordering - All Locations) Patient Can Go To The Location Of Their Choice, 04/28/2020 18:20:04 04/28/1904/28/2020 CBC w/ auto diff eo # 0.4 K/mm3 (0.0-0 .4) Not Available [facility] (Centralized Electronic Ordering - All Locations) Patient Can Go To The Location Of Their Choice, 04/28/2020 18:20:04 04/28/1904/28/2020 CBC w/ auto diff baso # 0.0 K/mm3 (0.0-0 .1) Not Available [facility] (Centralized Electronic Ordering - All Locations) Patient Can Go To The Location Of Their Choice, 04/28/2020 18:20:04 04/28/1904/28/2020 CBC w/ auto diff abs. imm gran 0.1 K/mm3 Not Available [facility] ([facility] Order[facility] - All Locations) Patient Can Go To The Location Of Their Choice, 04/28/2020 18:20:04 04/28/1904/28/2020 CBC w/ auto diff neut 69.6 % (44-76 ) Not Available [facility] (Centralized Electronic Ordering - All Locations) Patient Can Go To The Location Of Their Choice, 04/28/2020 18:20:04 04/28/19 21 04/28/2020 CBC w/ auto diff lymph 17.6 % (15-43 ) Not Available [facility] (Centralized Electronic Ordering - All Locations) Patient Can Go To The Location Of Their Choice, 04/28/2020 18:20:04 04/28/1904/28/2020 CBC w/ auto diff monocyte 7.9 % (4.5-1 0.5) Not Available [facility] (Centralized Electronic Ordering - All Locations) Patient Can Go To The Location Of Their Choice, 04/28/2020 18:20:04 04/28/1904/28/2020 CBC w/ auto diff eo 4.0 % (0-6) Not Available [facility] (Centralized Electronic Ordering - All Locations) Patient Can Go To The Location Of Their Choice, 04/28/2020 18:20:04 04/28/1904/28/2020 CBC w/ auto diff baso 0.3 % (0-2) Not Available [facility] (Centralized Electronic Ordering - All Locations) Patient Can Go To The Location Of Their Choice, 04/28/2020 18:20:04 04/28/1904/28/2020 CBC w/ auto diff imm gran 0.6 % Not Available [facility] (Centralized Electronic Ordering - All Locations) Patient Can Go To The Location Of Their Choice, 04/28/2020 18:20:04 04/28/1904/28/2020 CMP, serum or plasm a glucose 212 mg/dL (70-99 ) high Not Available [facility] (Centralized Electronic Ordering - All Locations) Patient Can Go To The Location Of Their Choice, 04/28/2020 18:39:19 04/28/1904/28/2020 CMP, serum or plasm a BUN 11 mg/dL (8-23) Not Available [facility] (Centralized Electronic Ordering - All Locations) Patient Can Go To The Location Of Their Choice, 04/28/2020 18:39:19 04/28/1904/28/2020 CMP, serum or plasm a creatinine 0.9 mg/dL (0.7-1 .2) Not Available [facility] (Centralized Electronic Ordering - All Locations) Patient Can Go To The Location Of Their Choice, 04/28/2020 18:39:19 04/28/1904/28/2020 CMP, serum or plasm a sodium 138 mmol/ L (133-1 45) Not Available [facility] (Centralized Electronic Ordering - All Locations) Patient Can Go To The Location Of Their Choice, 04/28/2020 18:39:19 04/28/1904/28/2020 CMP, serum or plasm a potassium 4.1 mmol/ L (3.6-5 .2) Not Available [facility] (Centralized Electronic Ordering - All Locations) Patient Can Go To The Location Of Their Choice, 04/28/2020 18:39:04/28/1904/28/2020 CMP, serum or plasm a chloride 104 mmol/ L (98-10 7) Not Available [facility] (Centralized Electronic Ordering - All Locations) Patient Can Go To The Location Of Their Choice, 04/28/2020 18:39:04/28/1904/28/2020 CMP, serum or plasm a bicarbonate 25 mmol/ L (22-29 ) Not Available [facility] (Centralized Electronic Ordering - All Locations) Patient Can Go To The Location Of Their Choice, 04/28/2020 18:39:04/28/1904/28/2020 CMP, serum or plasm a anion gap 9 (4-17) Not Available [facility] (Centralized Electronic Ordering - All Locations) Patient Can Go To The Location Of Their Choice, 04/28/2020 18:39:04/28/1904/28/2020 CMP, serum or plasm a albumin 3.8 gm/dL (3.4-4 .8) Not Available [facility] (Centralized Electronic Ordering - All Locations) Patient Can Go To The Location Of Their Choice, 04/28/2020 18:39:04/28/1904/28/2020 CMP, serum or plasm a calcium 8.9 mg/dL (8.6-1 0.5) Not Available [facility] (Centralized Electronic Ordering - All Locations) Patient Can Go To The Location Of Their Choice, 04/28/2020 18:39:04/28/1904/28/2020 CMP, serum or plasm a bilirubin,to angel 0.2 mg/dL (0-1.2 ) Not Available [facility] (Centralized Electronic Ordering - All Locations) Patient Can Go To The Location Of Their Choice, 04/28/2020 18:39:04/28/1904/28/2020 CMP, serum or plasm a total protein 6.4 gm/dL (6.2-8 .2) Not Available [facility] (Centralized Electronic Ordering - All Locations) Patient Can Go To The Location Of Their Choice, 04/28/2020 18:39:19 04/28/1904/28/2020 CMP, serum or plasm a Ag ratio 1.5 Not Available [facility] (Centralized Electronic Ordering - All Locations) Patient Can Go To The Location Of Their Choice, 04/28/2020 18:39:19 04/28/19 21 04/28/2020 CMP, serum or plasm a AST 18 U/L (0-40) Not Available [facility] (Centralized Electronic Ordering - All Locations) Patient Can Go To The Location Of Their Choice, 04/28/2020 18:39:19 04/28/1904/28/2020 CMP, serum or plasm a alk phos 103 U/L (40-12 9) Not Available [facility] (Centralized Electronic Ordering - All Locations) Patient Can Go To The Location Of Their Choice, 04/28/2020 18:39:19 04/28/1904/28/2020 CMP, serum or plasm a ALT 29 U/L (0-41) Not Available [facility] (Centralized Electronic Ordering - All Locations) Patient Can Go To The Location Of Their Choice, 04/28/2020 18:39:19 04/28/1904/28/2020 CMP, serum or plasm a est GFR non 91 mL/mi n/1.7 3_M2 Creat inine based estim ated glome rular filtr ation rate (eGFR ) is calcu lated using the Chron ic Kidne y Disea se Epide miolo gy Colla borat ion (CKD- EPI). The CKD-E PI creat inine equat ion has not been valid ated in child jennifer (<18 years ), pregn ant women or in some racia l or ethni c subgr oups other than Cauca sians and Afric an Ameri cans. Not Available [facility] (Centralized Electronic Ordering - All Locations) Patient Can Go To The Location Of Their Choice, 04/28/2020 18:39:19 04/28/1904/28/2020 CMP, serum or plasm a est GFR 106 mL/mi n/1.7 3_M2 Creat inine based estim ated glome rular filtr ation rate (eGFR ) is calcu lated using the Chron ic Kidne y Disea se Epide misumaya gy Collchad borat ion (CKD- EPI). The CKD-E PI creat inine equat ion has not been valid ated in child jennifer (<18 years ), pregn ant women or in some racia l or ethni c subgr oups other than Cauca sians and Afric an Ameri cans. Not Available [facility] (Centralized Electronic Ordering - All Locations) Patient Can Go To The Location Of Their Choice, [id number] 04/28/2020 18:39:19 04/28/1904/28/2020 HbA1c (hemo globi n A1c), blood hemoglobin A1C 8.9 % (4.0-5 .6) high MONIT ORING : In known diabe tic patie nts, hemog lobin A1c targe ts shoul d be discu ssed with healt h care provi fan. DIAGN OSTIC USE: The Ameri can Diabe josh Assoc iatio n (ADA) and the World Healt h Organ izati on (WHO) recom mend the use of HbA1c to diagn ose diabe josh using a thres hold of 6.5%. Patie nts who have an HbA1c betwe en 5.7% and 6.4% are consi dered at incre ased risk for devel oping diabe josh in the futur e. SEGUNDOTI ON: False ly low HbA1c resul ts may be obser dee dee in patie nts with hemol ytic anemi a, homoz ygous forms of abnor mal hemog lobin (e.g. SS, CC, SC), pregn dominick, recen t blood loss or hemog lobin F great er than 7%. Fruct osami ne may be used as an alter dang test in these cases . 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 If clini agueda suspi cion for COVID -19 is high, deirdre nue to maint ain preca ution s and consi fan repea t testi ng. Resul t repor gurpreet to the [facility]. This test has been autho rized by the FDA under an Emerg ency Use Autho rizat ion (EUA) for use by autho rized labor atori es. Test perfo rmed by [facility] [employer] at the [facility] [place] and Marialuisa shepard, [address] [place] [address] . CLIA ID: [id number] , CAP: [id number] 96. Medic al Direc tor: Zenaida Allred, PhD FACMG (NOTE ) The [facility] SARS- CoV-2 Real- time Rever se Trans cript ase (RT)- PCR Diagn ostic Assay is a real- time RT-PC R test inten ded for the quali tativ e detec tion of nucle ic acid from the SARS- CoV-2 in nasop haryn geal and oroph aryng eal swabs colle cted from indiv idual s who may have contr acted the virus . Testi ng is limit ed to the [facility] or at the [facility] which is certi fied under the Clini agueda Labor atory Impro vemen t Amend ments of 1987 (CLIA ), 42 U.S.C . ?263a , to perfo rm high compl exity tests . = Posit bernadette resul ts are indic ative of activ e infec tion with SARS- CoV-2 but do not rule out bacte rial infec tion or co-in fecti on with other virus es. The agent detec gurpreet may not be the defin ite cause of disea se. In addit ion, nucle ic acid detec tion can persi st follo wing clear ance of activ e viral repli catio n. Labor atori es withi n the Unite d State s and its yaima sydnee s are requi red to repor t all posit bernadette resul ts to the appro priat e publi c healt h autho ritie s. = Negat bernadette resul ts do not precl ude SARS- CoV-2 infec tion and shoul d not be used as the sole basis for patie nt treat ment or other patie nt manag ement decis ions. Negat bernadette resul ts must be combi mina with clini agueda obser vatio ns, patie nt histo ry, and epide miolo gical infor matio n. Not Available [facility] (Centralized Electronic Ordering - All Locations) Patient Can Go To The Location Of Their Choice, 04/30/2020 00:39:11 04/28/1905/04/2020 hepat ic funct ion panel , serum bilirubin,to angel 0.2 mg/dL (0-1.2 ) Not Available [facility] (Centralized Electronic Ordering - All Locations) Patient Can Go To The Location Of Their Choice, 05/04/2020 15:24:56 04/28/1905/04/2020 hepat ic funct ion panel , serum bilirubin, direct <0.2 mg/dL (0-0.3 ) Not Available [facility] (Centralized Electronic Ordering - All Locations) Patient Can Go To The Location Of Their Choice, 05/04/2020 15:24:56 04/28/1905/04/2020 hepat ic funct ion panel , serum indirect bilirubin mg/dL (0.0-0 .7) Direc t bilir ubin is less than the measu reabl e limit . There fore, indir ect bilir ubin canno t be calcu lated . Not Available [facility] (Centralized Electronic Ordering - All Locations) Patient Can Go To The Location Of Their Choice, 05/04/2020 15:24:56 04/28/1905/04/2020 hepat ic funct ion panel , serum albumin 3.9 gm/dL (3.4-4 .8) Not Available [facility] (Centralized Electronic Ordering - All Locations) Patient Can Go To The Location Of Their Choice, [id number] 05/04/2020 15:24:56 04/28/1905/04/2020 hepat ic funct ion panel , serum AST 20 U/L (0-40) Not Available [facility] (Centralized Electronic Ordering - All Locations) Patient Can Go To The Location Of Their Choice, 05/04/2020 15:24:56 04/28/1905/04/2020 hepat ic funct ion panel , serum ALT 27 U/L (0-41) Not Available [facility] (Centralized Electronic Ordering - All Locations) Patient Can Go To The Location Of Their Choice, [id number] 05/04/2020 15:24:56 04/28/1905/04/2020 hepat ic funct ion panel , serum alk phos 101 U/L (40-12 9) Not Available [facility] (Centralized Electronic Ordering - All Locations) Patient Can Go To The Location Of Their Choice, [id number] 05/04/2020 15:24:56 04/28/1905/04/2020 hepat ic funct ion panel , serum total protein 6.6 gm/dL (6.2-8 .2) Not Available [facility] (Centralized Electronic Ordering - All Locations) Patient Can Go To The Location Of Their Choice, [id number] 05/04/2020 15:24:56 04/28/1904/28/2020 BMP + ioniz ed calci um, serum or plasm a glu 213 mg/dL 70-105 Not Available Den [address], [address], 05/12/2020 14:30:49 04/28/19 21 04/28/2020 BMP + ioniz ed calci um, serum or plasm a BUN 10 mg/dL 8-26 Not Available [address], [address], 05/12/2020 14:30:49 04/28/19 21 04/28/2020 BMP + ioniz ed calci um, serum or plasm a crea 0.8 mg/dL 0.6-1. 3 Not Available Den [place] [address], [place], [address], 05/12/2020 14:30:49 04/28/19 21 04/28/2020 BMP + ioniz ed calci um, serum or plasm a Na 138 mmol/ L 138-14 6 Not Available [address], [address], 05/12/2020 14:30:49 04/28/19 21 04/28/2020 BMP + ioniz ed calci um, serum or plasm a K 3.8 mmol/ L 3.5-4. 9 Not Available [address], [address], 05/12/2020 14:30:49 04/28/19 21 04/28/2020 BMP + ioniz ed calci um, serum or plasm a cL 104 mmol/ L 98-109 Not Available [address], [address], 05/12/2020 14:30:49 04/28/19 21 04/28/2020 BMP + ioniz ed calci um, serum or plasm a TCO2 26 mmol/ L 24-29 Not Available [address], [address], 05/12/2020 14:30:49 04/28/19 21 04/28/2020 BMP + ioniz ed calci um, serum or plasm a angap 13 mmol/ L 10-20 Not Available [address], [address], 05/12/2020 14:30:49 04/28/19 21 04/28/2020 BMP + ioniz ed calci um, serum or plasm a ica 1.18 mmol/ L 1.12-1 .32 Not Available [address], [address], 05/12/2020 14:30:49 04/28/19 21 04/28/2020 BMP + ioniz ed calci um, serum or plasm a HCT 40 %pcv 38-51 Not Available [facility] [address] [place], [address], 05/12/2020 14:30:49 04/28/19 21 04/28/2020 BMP + ioniz ed calci um, serum or plasm a Hb 13.6 g/dL 12-17 Not Available [facility] [address] [place], [address], 05/12/2020 14:30:49 Result Notes None recorded. Procedures Surgical History Date Name Laterality Status Provider Name and Address Organization Details Recorded Time 04/28/19 Venipuncture - DH completed PAULY LÓPEZ [address] [place], [address], [place] [facility] 04/28/2020 14:51:44 Hernia repair w/mesh completed PAULY LÓPEZ [address], [place], [address], [place] [facility] 04/28/2020 14:03:33 Imaging Results None recorded. Procedure Notes None recorded. Medical Equipment None Reported. Allergies Allergen ID Allergen Name Allergen Category Reaction Reaction Severity Criticality Documentation Date Start Date Code Code System Note Provider Name and Address Organization Details Recorded Time [id number] oxaprozin medicatio n Not available Not available Not available 04/28/2020 55959 RxNorm PAULY LÓPEZ [address] [place], [address], [place] [facility] 14:05:36 Medications Name Sig Start Date Stop Date Status Note LastModified by Organization Details LastModified Time amoxicillin 500 mg capsule TAKE 2 CAPSULES TO START THEN 1 CAPSULE EVERY 8 HOURS UNTIL FINISHED 04/28 completed Not Available Not Available Not Available atorvastati n 80 mg tablet TAKE 1 TABLET BY MOUTH EVERY DAY active Not Available Not Available No t Available gabapentin 600 mg tablet TAKE 2 TABLETS AT BEDTIME active Not Available Not Available No t Available baclofen 20 mg tablet TAKE 2 TABLETS AT BEDTIME active Not Available Not Available No t Available oxycodone-a cetaminophe n 5 mg-325 mg tablet TAKE 1 TABLET DAILY NEEDED FOR PAIN active Not Available Not Available No t Available gabapentin 800 mg tablet TAKE 1 TABLET BY MOUTH EVERY DAY AT BEDTIME ALONG WITH TWO OF THE 100MG TABLETS 04/28 completed Not Available Not Available Not Available cephalexin 500 mg capsule TAKE 1 CAP BY MOUTH 3 TIMES DAILY (WITH MEALS) FOR 7 DAYS. 04/28 completed Not Available Not Available Not Available pantoprazol e 40 mg tablet,kimberley yed release TAKE 1 TABLET BY MOUTH EVERY DAY active Not Available Not Available No t Available omeprazole 20 mg capsule,del ayed release TAKE 1 CAP BY MOUTH DAILY FOR 360 DAYS. 04/28 completed Not Available Not Available Not Available levetiracet am 750 mg tablet TAKE 1 TABLET BY MOUTH TWICE A DAY active Not Available Not Available No t Available gabapentin 100 mg capsule TAKE 1 CAPSULE BY MOUTH TWICE A DAY 04/28 completed Not Available Not Available Not Available fluoxetine 20 mg capsule TAKE 1 CAPSULE BY MOUTH EVERY DAY active Not Available Not Available No t Available loratadine 10 mg tablet TAKE 1 TABLET BY MOUTH EVERY DAY active Not Available Not Available No t Available nicotine 7 mg/24 hr daily transdermal patch PLACE 1 PATCH ONTO THE SKIN EVERY 24 HOURS. 04/28 completed Not Available Not Available Not Available melatonin active Not Available Not Maribel ilable Not Available Eliquis 5 mg tablet TAKE 1 TABLET BY MOUTH TWICE A DAY active Not Available Not Available No t Available Vitals Date Recorded Oxygen saturation Heart rate Body temperature Respiratory rate Systolic And Diastolic Provider Name and Address Organization Details Last Updated DateTime 1 94 % 83 /min 97.7 [degF] 18 /min 110/80 mm[Hg] Not Available [facility] 14:08:37 Social History Question Answer Notes LastModified by Organizat ion Details LastModified Time Tobacco Smoking Status Former Smoker quit 1.5 years ago PAULY LÓPEZ [address] [place], [address], [place] [facility] 04/28/2020 14:03:52 Do You Have An Advance Directive? No [email or web address] Information not available 04/28/2020 What Is Your Code Status? Full Code [email or web address] Information not available 04/28/2020 Within The Past 12 Months, Has It Happened That The Food You Bought Just Didn't Last And You Didn't Have Money To Get More. No [email or web address] Information not available 04/28/2020 Within The Past 12 Months, Have You Worried That Your Food Would Run Out Before You Got Money To Buy More. No [email or web address] Information not available 04/28/2020 Fall Risk: Do You Feel Unsteady When Standing Or Walking? Yes [email or web address] Information not available 04/28/2020 We Know That How And When People Interact With Friends And Family Can Be Very Different From Person To Person. How Often Do You Have The Opportunity To See Or Talk To People That You Care About And Feel Close To? (Ex: Talking To Friends On The Phone Or Visiting Friends Or Family Or Going To Methodist Or Club Meetings) 5 Or More Times Per Week Information not available 04/28/2020 Excessive Alcohol Or Drug Use No [email or web address] Information not available 04/28/2020 We Know From Many Of Our Patients That Covering All Of Their Costs Can Be Difficult At Times. This Can Cause Stress And Impact Health. In The Past Year, Have You Been Unable To Get Any Of The Following When It Was Really Needed? No [email or web address] Information not available 04/28/2020 What Is Your Housing Situation Today? I Have Housing Information not available 04/28/2020 Would You Like Help Connecting To Resources? None [email or web address] Information not available 04/28/2020 Sex: Unknown Functional Status None recorded. Mental Status None recorded. Family History Relationship Description Onset Age of this Age Resolved Age Notes LastModified by Organization Details LastModified Time Father Cerebrovascu lar accident [email or web address] Not available 14:07:17 Medical History Condition Response Coronary Artery Disease N Depression Y COPD N Stroke Y High Cholesterol Y Kidney Disease N Diabetes N Asthma N Pulmonary Embolism N Hypertension Y Past Encounters Encounter ID Performer Location Encounter Start Date Encounter Closed Date Diagnosis/Indication Diagnosis SNOMED-CT Code Diagnosis ICD10 Code Diagnosis IMO Codes Diagnosis Note [id number] PAULY LÓPEZ [facility] [address] [place] [address] 04/28/2020 13:39:25 05/01/2020 10:52:20 Diarrhea 40181629 R19.7 Health Concerns Section Related Observation LastModified by Organization Detai ls LastModified Time None Recorded Concern Status LastModified by Organization Details LastModified Time None Recorded Advance Directives Directive N: Payers Insurance Date Sequence Insurance Name Policy Number Policy Lubin Covered Member ID Lubin Member ID Guarantor Name 04/28/2020 1 MEDICARE B-[place]: [facility] [employer] Angel Page [id number] Angel Page 04/28/2020 1 *SELF PAY* Angel Page [id number] Angel Page 05/02/2020 2 [place] [facility] Angel Page [id number] Angel Page 05/02/2020 1 [place] [facility] [employer] Quang Page [id number] Angel Page Notes Date Note Type Note Provider Name and Address Organization Details Recorded Time 04/28/2020 text/html 64yoM new to pm[facility]x HTN, HDL, paroxysmal afib, sig CVA with L sided hemiparesis is seen today for diarrhea diarrhea x 6 days. Family called PCP and they would like blood work done. Stool studies ordered by PCP. Patient denies fever, nausea, vomiting, abdominal pain, hematochezia or melena. He denies any urinary symptoms.no blood or black stools. Patient reports good appetite and denies any change in appetite. Patient takes sang Percocet at night for pain and this is unchanged. One month ago the patient was taking Cephalexin 500mg TID for 10 days for a toe infection. PAULY LÓPEZ [facility] [place], [address], [place] [facility] 04/28/2020 15:07:29
--- OUTSIDE RECORDS SUMMARY | 2025-01-25 17:10 | XMS_ITS | Encounter Summary ---
Author Organization [facility] Address [address] [place] [address] Care Team Providers Care Marketing Research Intern Name Role Phone Vi Serrano MD Primary Care Pr ovider Encounter Details Date Type Department Care Team (Late st Contact Info) Description 01/11/2025 Referral Triage [facility] Health Worker [facility] [address] [place] [phone] Bertin Linder Social History Tobacco Use Types Packs/Day Years Used Date Smoking Tobacco: Former Cigarettes 1 52.9 S tarted: 03/03/1972 Smokeless Tobacco: Never Alcohol Use Standard Drinks/Week Comments Yes 0 (1 standard drink = 0.6 oz pur e alcohol) Housing Instability Answer Date Recorde d Are you worried that in the next 2 months you may not have stable housing? No 01/04/2025 Food Access & Nutrition Answer Date Rec orded Do you have access to a vari ety of food including fruits and vegetables? Yes 02/15/2024 Access to Healthcare Answer Date Record ed Within the last 3 months, ho w many times did you visit the emergency department for your medical care? 0 01/04/2025 Health Literacy Answer Date Recorded How often [...] air conditioning / heating? Not very hard 01/04/2025 Transportation Answer Date Recorded Has the lack of transportati on kept you from meetings, work, or from getting things needed for daily living? No Has the lack of transportati on kept you from medical appointments or from getting medications? Yes 01/04/2025 Social Isolation Answer Date Recorded How often do you feel lonely or isolated from those around you? Sometimes 02/15/2024 Food Risk Answer Date Recorded Within the past 12 months we worried whether our food would run out before we got money to buy more. Never true 01/04/2025 Within the past 12 months th e food we bought just didn't last and we didn't have money to get more. Never true 01/04/2025 Dependent Care Answer Date Recorded Do you need help finding or paying for care for your loved ones. For example, children's author or elderly care for an older adult? [...] is your living situation? Unrecognized valu e 01/04/2025 Sex and Gender Information Value Date Recorded Sex Assigned at Male 07/19/2024 12:15 PM EDT Legal Sex Male 2:28 AM EST Gender Identity Male 07/19/2024 12:15 PM EDT Sexual Orientation Not on file documented as of this encounter Plan of Treatment Upcoming Encounters Date Type Department Care Team (Late st Contact Info) Description 03/31/2025 12:45 PM EST Office Visit Adult Medicine [address] [phone] Vi Serrano MD [address] [place] [address] 07/20/2025 1:00 PM EDT Office Visit Pulmonology - [address] [place] [phone] Reza Pemberton MD [address] [place] [address] documented as of this encounter Goals Goal Patient Goal Type Associated Problems Recent Progress Patient-Stated? Author Patient has access to needed care General Cheyenne Orlando, RN documented as of this encounter Visit Diagnoses Not on filedocumented in this encounter Additional Health Concerns Assessment Noted Time PHQ-9 Depression Total Score: 0 06/30/19 25 11:25 AM EDT documented as of this encounter Care Teams Marketing Research Intern Relationship Specialty Start Date End Date Vi Serrano MD [address] [place], [place] PCP - General Internal Medicine 09/25/21 documented as of this encounter
--- OUTSIDE RECORDS SUMMARY | 2025-01-25 17:11 | XMS_ITS | Clinical Summary ---
Author Organization 175 [facility] Address [address] [place] [address] Phone Care Team Providers Care Nuclear Weapons Custodian Name Role Phone Vi Serrano MD Primary Care Pr ovider Allergies Active Allergy Reactions Criticality Noted Date Comments Oxaprozin 02/21/2005 Medications baclofen (LIORESAL) 20 mg tablet Take 2 Tablets by mouth every evening. Active FREESTYLE LANCETS MISC USE TO TEST BLOOD SUGAR ONCE DAILY 08/01/19 22 Active gabapentin (NEURONTIN) 600 mg tablet Take 1 Tablet by mouth 3 times daily. 07/24/19 24 Active blood sugar diagnostic (FreeStyle Lite Strips) test strip USE TO TEST BLOOD SUGAR ONCE DAILY 05/30/19 24 Active levETIRAcetam (KEPPRA XR) 750 mg tablet extended release 24 hr 24 Hour tablet Take 1 Tablet by mouth 2 times daily. Active alfuzosin (UROXATRAL) 10 mg 24 hr tablet 01/19/20 24 Active calcium carbonate (Tums) 500 mg (200 mg elemental calcium) chewable tablet Chew 1 tablet (500 mg total). 08/06/19 19 Active ipratropium-alb uteroL (DUONEB) 0.5-2.5 mg/3 mL nebulizer solution Inhale 3 mL by mouth. 07/16/19 24 Active albuterol HFA (PROAIR HFA ; PROVENTIL HFA ; VENTOLIN HFA) 90 mcg/actuation inhaler INHALE 2 PUFFS INTO THE LUNGS EVERY 4 HOURS NEEDED FOR COUGH OR WHEEZING. 18 each 02/11/20 24 Active clotrimazole-be tamethasone (LOTRISONE) 1-0.05 % creamIndication s:Dermatitis, unspecified APPLY SMALL AMOUNTS TO AFFECTED AREA EVERY 12 HOURS. DO NOT USE FOR MORE THAN 14 DAYS AT A TIME 30 g 5 04/26/19 25 Active diazePAM (VALIUM) 2 mg tablet Take 1 tablet (2 mg total) by mouth at bedtime as needed for muscle spasms, sedation or anxiety. 06/12/19 25 Active cholecalciferol (VITAMIN D-3) 50 mcg (2,000 unit) tabletIndicatio ns:Vitamin D deficiency Take 1 tablet (2,000 Units total) by mouth 1 (one) time each day. 90 tablet 3 07/03/19 25 026 Active docusate sodium (Colace) 100 mg capsule Take 1 capsule (100 mg total) by mouth 1 (one) time each day. 90 capsule 1 11/05/19 25 Active Eliquis 5 mg tablet TAKE 1 TABLET BY MOUTH TWICE A DAY 180 tablet 1 12/08/19 25 Active losartan (COZAAR) 25 mg tabletIndicatio ns:Type 2 diabetes mellitus with other diabetic kidney complication (CMS/HCC V24, CMS/HCC V28) Take 1 tablet (25 mg total) by mouth 1 (one) time each day. 90 tablet 1 12/28/19 25 Active atorvastatin (LIPITOR) 80 mg tabletIndicatio ns:Cerebral infarction due to embolism of right middle cerebral artery (CMS/HCC V24, CMS/HCC V28),Hyperlipid emia LDL goal <70 Take 1 tablet (80 mg total) by mouth at bedtime. 90 tablet 1 12/28/19 25 Active dapagliflozin propanediol (Farxiga) 10 mg tabletIndicatio ns:Type 2 diabetes mellitus with diabetic microalbuminuri a, without long-term current use of insulin (CMS/HCC V24, CMS/HCC V28) Take 1 tablet (10 mg total) by mouth 1 (one) time each day. 90 each 1 12/28/19 25 026 Active omeprazole (PriLOSEC) [address] capsuleIndicati ons:Gastroesoph ageal reflux disease without esophagitis Take 1 capsule (20 mg total) by mouth 1 (one) time each day. Do not crush or chew. 90 capsule 1 12/28/19 25 Active glipiZIDE (GLUCOTROL) 5 mg tablet Take 1 tablet (5 mg total) by mouth 1 (one) time each day before breakfast. 90 each 1 12/28/19 25 026 Active FLUoxetine (PROzac) 40 mg capsuleIndicati ons:Anxiety and depression Take 1 capsule (40 mg total) by mouth 2 (two) times a day. 180 each 1 12/28/19 25 026 Active fluticasone propionate (FLONASE) 50 mcg/actuation nasal spray Administer 1 spray into each nostril 2 (two) times a day. 16 mL 1 12/28/19 Active Incruse Ellipta 62.5 mcg/actuation inhalationIndic ations:COPD with asthma ([facility] V24, [facility] V28) INHALE 1 PUFF BY MOUTH EVERY DAY 30 each 5 01/18/20 25 Active tirzepatide (Mounjaro) 12.5 mg/0.5 mL injection Inject 0.5 mL (12.5 mg total) under the skin every 7 (seven) days. 2 mL 01/25/20 25 025 Active loratadine (CLARITIN) 10 mg tablet TAKE 1 TABLET BY MOUTH EVERY DAY 03/10/19 24 025 Discontinued(T herapy completed) fluticasone propionate (FLONASE) 50 mcg/actuation nasal spray SPRAY 1 SPRAY INTO EACH NOSTRIL TWICE A DAY 16 mL 1 05/05/19 25 025 Discontinued(R eorder) losartan (COZAAR) 25 mg tabletIndicatio ns:Type 2 diabetes mellitus with other diabetic kidney complication ([facility] V24, [facility] V28) TAKE 1 TABLET BY MOUTH EVERY DAY 90 tablet 1 07/01/19 25 025 Discontinued atorvastatin (LIPITOR) 80 mg tabletIndicatio ns:Cerebral infarction due to embolism of right middle cerebral artery ([facility] V24, [facility] V28),Hyperlipid emia LDL goal <70 Take 1 tablet (80 mg total) by mouth at bedtime. 90 tablet 1 07/03/19 25 025 Discontinued(R eorder) omeprazole (PriLOSEC) [address] capsuleIndicati ons:Gastroesoph ageal reflux disease without esophagitis Take 1 capsule (20 mg total) by mouth 1 (one) time each day. Do not crush or chew. 90 capsule 1 07/03/19 25 025 Discontinued(R eorder) FLUoxetine (PROzac) 20 mg capsuleIndicati ons:Anxiety and depression Take 3 capsules (60 mg total) by mouth 1 (one) time each day. 270 capsule 1 07/03/19 025 Discontinued(R eorder) dapagliflozin propanediol (Farxiga) 10 mg tabletIndicatio ns:Type 2 diabetes mellitus with diabetic microalbuminuri a, without long-term current use of insulin ([facility] V24, [facility] V28) Take 1 tablet (10 mg total) by mouth 1 (one) time each day. 90 each 1 07/03/19 025 Discontinued(R eorder) Incruse Ellipta 62.5 mcg/actuation inhalationIndic ations:COPD with asthma ([facility] V24, [facility] V28) INHALE 1 PUFF BY MOUTH DAILY 1 each 5 07/20/19 25 025 Discontinued glipiZIDE (GLUCOTROL XL) 10 mg 24 hr tabletIndicatio ns:Type 2 diabetes mellitus with other diabetic kidney complication ([facility] V24, [facility] V28) TAKE 1 TABLET BY MOUTH EVERY DAY 90 tablet 1 09/21/19 025 Discontinued tirzepatide (Mounjaro) 7.5 mg/0.5 mL injection Inject 0.5 mL (7.5 mg total) under the skin every 7 (seven) days. 6 mL 11/05/19 025 Discontinued FLUoxetine (PROzac) 20 mg capsuleIndicati ons:Anxiety and depression Take 3 capsules (60 mg total) by mouth 1 (one) time each day. 270 capsule 1 12/28/19 25 025 Discontinued tirzepatide (Mounjaro) 10 mg/0.5 mL injectionIndica tions:Type 2 diabetes mellitus with diabetic microalbuminuri a, without long-term current use of insulin ([facility] V24, [facility] V28),Obesity (BMI 30-39.9) Inject 0.5 mL (10 mg total) under the skin every 7 (seven) days. 2 mL 12/28/19 25 025 Discontinued(D uplicate order) Active Problems Problem Noted Date Diagnosed Date Overflow incontinence of urine 07/05/2024 Assessment & Plan (12/27/2024 2:10 PM EDT): Continue with incontinence pull-ups Orders: Ambulatory referral to Care Management Assessment & Plan (07/05/2024 4:44 PM EDT): He is requesting wipes, gloves, briefs due to his limited gait and mobility issues secondary to his stroke and urinary incontinence Hyperlipidemia LDL goal <70 07/02/2024 Assessment & Plan (12/27/2024 2:10 PM EDT): Continue atorvastatin Orders: atorvastatin (LIPITOR) 80 mg tablet; Take 1 tablet (80 mg total) by mouth at bedtime. Comprehensive metabolic panel; Future Ambulatory referral to Care Management Assessment & Plan (07/05/2024 4:44 PM EDT): Continue atorvastatin Orders: atorvastatin (LIPITOR) 80 mg tablet; Take 1 tablet (80 mg total) by mouth at bedtime. Benign prostatic hyperplasia with urinary freque ncy 07/02/2024 Assessment & Plan (12/27/2024 2:10 PM EDT): Continue urology follow-up and alfuzosin daily Orders: Ambulatory referral to Care Management Assessment & Plan (07/05/2024 4:44 PM EDT): Continue urology follow-up. Continue alfuzosin daily Obesity (BMI 30-39.9) 07/02/2024 Assessment & Plan (12/27/2024 2:10 PM EDT): Continue Mounjaro -increased dose sent Orders: tirzepatide (Mounjaro) 10 mg/0.5 mL injection; Inject 0.5 mL (10 mg total) under the skin every 7 (seven) days. Ambulatory referral to Care Management Assessment & Plan (07/05/2024 4:44 PM EDT): He would benefit from weight loss. Sent Mounjaro to help with this Orders: tirzepatide (Mounjaro) 5 mg/0.5 mL injection; Inject 0.5 mL (5 mg total) under the skin every 7 (seven) days. Positive colorectal cancer screening using Colog uard test 12/08/2023 Assessment & Plan (12/27/2024 2:10 PM EDT): see HPI. Referred to GI Orders: Ambulatory referral to Gastroenterology; Future Ambulatory referral to Care Management Assessment & Plan (07/05/2024 4:44 PM EDT): See HPI. Unfortunately it has been difficult to navigate getting patient a colonoscopy given his impaired mobility due to his stroke. Will require hospitalization to get the colon prep and subsequent colonoscopy however his insurance does not cover this COPD with asthma ([facility] V24, [facility] V28) 07/02 Assessment & Plan (12/27/2024 2:10 PM EDT): Continue Incruse daily and albuterol as needed Orders: Ambulatory referral to Care Management Assessment & Plan (07/05/2024 4:44 PM EDT): Continue Incruse daily and albuterol as needed. He is not ready to give up smoking the marijuana once a week. Hepatic steatosis 07/24/2023 Assessment & Plan (12/27/2024 2:10 PM EDT): Will monitor liver enzymes Orders: Comprehensive metabolic panel; Future Ambulatory referral to Care Management Type 2 diabetes mellitus wit h diabetic microalbuminuria, without long-term current use of insulin ([facility] V24, [facility] V28) 07/24/2023 Assessment & Plan (12/27/2024 2:10 PM EDT): Well controlled Will decrease glipizide to 5 mg daily from 10 mg daily. Will continue Farxiga 10 mg. Will increase Mounjaro to 10 mg weekly Orders: dapagliflozin propanediol (Farxiga) 10 mg tablet; Take 1 tablet (10 mg total) by mouth 1 (one) time each day. tirzepatide (Mounjaro) 10 mg/0.5 mL injection; Inject 0.5 mL (10 mg total) under the skin every 7 (seven) days. Hemoglobin A1c; Future Ambulatory referral to Care Management Assessment & Plan (07/05/2024 4:44 PM EDT): His diabetes is reasonably well-controlled. He will continue with Farxiga, glipizide 10 mg daily. Mounjaro is increased to 5 mg weekly. My understanding of the letter provided from his insurance is that the quality limit of the 2.5 mg has been reached. They will let me know if he has any issues obtaining the higher dose Overall his blood pressure is still with a borderline elevated diastolic blood pressure to 91. Will monitor Orders: Microalbumin creatinine urine ratio; Future Hemoglobin A1c; Future Comprehensive metabolic panel; Future tirzepatide (Mounjaro) 5 mg/0.5 mL injection; Inject 0.5 mL (5 mg total) under the skin every 7 (seven) days. dapagliflozin propanediol (Farxiga) 10 mg tablet; Take 1 tablet (10 mg total) by mouth 1 (one) time each day. Vitamin D deficiency 10/17/2022 Assessment & Plan (12/27/2024 2:10 PM EDT): Continue vitamin D daily Orders: Ambulatory referral to Care Management Assessment & Plan (07/05/2024 4:44 PM EDT): Start vitamin D 2000 units daily. Will update vitamin D level Orders: cholecalciferol (VITAMIN D-3) 50 mcg (2,000 unit) tablet; Take 1 tablet (2,000 Units total) by mouth 1 (one) time each day. Vitamin D 25 hydroxy; Future Cognitive deficits following cerebrovascular dis ease 10/16/2022 Type 2 diabetes mellitus wit h neurological manifestations, controlled ([facility] V24, [facility] V28) 11/14/2021 Assessment & Plan (12/27/2024 2:10 PM EDT): As above Orders: Ambulatory referral to Care Management Anxiety and depression 06/17/2019 Assessment & Plan (12/27/2024 2:10 PM EDT): Not well Controlled. Currently not interested in therapy Will increase Prozac from 60 mg daily to 40mg BID Orders: FLUoxetine (PROzac) 40 mg capsule; Take 1 capsule (40 mg total) by mouth 2 (two) times a day. Ambulatory referral to Care Management Assessment & Plan (07/05/2024 4:44 PM EDT): Stable. Continue fluoxetine Orders: FLUoxetine (PROzac) 20 mg capsule; Take 3 capsules (60 mg total) by mouth 1 (one) time each day. 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 Assessment & Plan (12/27/2024 2:10 PM EDT): Continue diazepam nightly, gabapentin 600mg , keppra BID and baclofen which are prescribed by his neurologist Orders: Ambulatory referral to Care Management Assessment & Plan (07/05/2024 4:44 PM EDT): Continue diazepam nightly, gabapentin 600mg , keppra BID and baclofen which are prescribed by his neurologist Cerebral infarction due to e mbolism of right middle cerebral artery ([facility] V24, [facility] V28) 01/04/2019 Assessment & Plan (12/27/2024 2:10 PM EDT): Continue atorvastatin Continue on diazepam nightly, gabapentin 600mg , keppra BID and baclofen which are prescribed by his neurologist following her Continue neurology follow-up Orders: atorvastatin (LIPITOR) 80 mg tablet; Take 1 tablet (80 mg total) by mouth at bedtime. Ambulatory referral to Care Management Assessment & Plan (07/05/2024 4:44 PM EDT): Continue atorvastatin Orders: atorvastatin (LIPITOR) 80 mg tablet; Take 1 tablet (80 mg total) by mouth at bedtime. Spastic hemiplegia of left n ondominant side as late effect of cerebrovascular disease ([facility] V24, [facility] V28) 01/04/2019 Overview (12/08/2023): Sees Dr. Loo Assessment & Plan (12/27/2024 2:10 PM EDT): He will benefit from home health care for physical therapy given his back pain and left elbow pain. Referral was placed Continue on diazepam nightly, gabapentin 600mg , keppra BID and baclofen which are prescribed by his neurologist Orders: Ambulatory referral to Home Health; Future Ambulatory referral to Care Management Assessment & Plan (07/05/2024 4:44 PM EDT): He is requesting wipes, gloves, briefs due to his limited gait and mobility issues secondary to his stroke and urinary incontinence Pain in joint of left shoulder 11/26/2018 Sick sinus syndrome ([facility] V24, [facility] V28) 0 09/25/2018 Assessment & Plan (12/27/2024 2:10 PM EDT): Pacemaker in place. Orders: Ambulatory referral to Care Management Cardiac pacemaker in situ 09/23/2018 Overview (10/28/2024): - Presented with syncopal episode at [facility] during the course of his poststroke rehabilitation associated with bradycardia and heart block - Status post Biotronik dual-chamber permanent pacemaker placement in August 2018 -The most recent pacemaker interrogation (August 2024) demonstrated normal device function, 45% battery life remaining, no arrhythmias detected, and pacing percentages of 44% in the right ventricle and 34% in the atrium-however was noted to be in an irregular rhythm on subsequent device check since August 2024 with average heart rate in the 70s and peak heart rate of only 127 Assessment & Plan (12/27/2024 2:10 PM EDT): Continue routine follow-up with cardiology as well as device checks Orders: Ambulatory referral to Care Management Gastroesophageal reflux disease without esophagi tis 09/23/2018 Assessment & Plan (12/27/2024 2:10 PM EDT): Continue omeprazole Orders: omeprazole (PriLOSEC) [address] capsule; Take 1 capsule (20 mg total) by mouth 1 (one) time each day. Do not crush or chew. Ambulatory referral to Care Management Assessment & Plan (07/05/2024 4:44 PM EDT): Continue omeprazole daily Orders: omeprazole (PriLOSEC) [address] capsule; Take 1 capsule (20 mg total) by mouth 1 (one) time each day. Do not crush or chew. Typical atrial flutter (CMS/HCC V24, CMS/HCC V28 ) 09/23/2018 Overview (10/28/2024): - Had many episodes of paroxysmal atrial fibrillation but most recently was in sinus rhythm - During office visit on 10/28/2024, he was noted to be in what appears to be an atrial flutter with ventricular response rate in the 110s incidentally-device check after the patient had left revealed that he in fact had been in an irregular rhythm since August 2024 - Since he is asymptomatic and device indicated that his average heart rates were in the 70s with the highest being only 127, auto rate control was continued along with Eliquis for CVA prophylaxis - Very high [id number] score in the setting of a major stroke in the past-will likely require bridging for cessation of DOAC -A prior echocardiogram (2018) revealed an ejection fraction of 65%, normal left ventricular diastolic function, suboptimal visualization of the endocardium, upper normal right ventricular size, normal systolic function, and no significant valvular pathology Assessment & Plan (12/27/2024 2:10 PM EDT): Continue eliquis 5mg BID Continue Cardiology follow up Orders: Ambulatory referral to Care Management Assessment & Plan (07/05/2024 4:44 PM EDT): Will update CBC. Continue Eliquis 5 mg twice daily. He has a pacemaker in place with device checks by cardiology Orders: CBC and differential; Future Former smoker 10/13/2014 Back pain 07/12/2008 Overview (12/08/2023): Chronic, Assessment & Plan (12/27/2024 2:10 PM EDT): X-rays ordered. This will need to be completed at [facility] as he requires a Saira lift Home health care referral placed for physical therapy Orders: Ambulatory referral to Home Health; Future XR Lumbar Spine 4+ Views; Future Ambulatory referral to Care Management Resolved Problems Problem Noted Date Diagnosed Date Resolved Date Abnormal EKG 10/27/2024 10/28/2024 Paroxysmal A-fib ([facility] V24, [facility] V28) 01/04/2019 07/02/2024 S/P placement of cardiac pacemaker 01/04/2019 10/28/2024 Pain 10/08/2018 07/02/2024 Acute urinary tract infection 09/23/2018 07/02/2024 Sepsis ([facility] V24, [facility] V28) 09/23/2018 03/04/2024 Overview (01/27/2024): pseudomonas aeruginosa infection Depressive disorder 09/23/2018 07/03/19 25 Cerebrovascular accident ( [facility] V24, [facility] V28) 09/23/2018 07/02/2024 Hernia of abdominal cavity 10/13/2014 1 Encounters Date Type Department Care Team Description 01/19/2025 1:30 PM EST Office Visit Pulmonology - [place] [address] [facility] [address] [place] [address] Reza Pemberton MD COPD with asthma ([facility] V24, [facility] V28) (Primary Dx); Cerebral infarction due to embolism of right middle cerebral artery ([facility] V24, [facility] V28) 01/12/2025 Telephone Gastroenterology [facility] [address] [facility] [address] [facility] [address] [place] [address] Daniel Yousif MD 01/11/2025 Referral Triage [facility] [address] [place] [phone] Bertin Linder 12/28/2024 Results Follow-Up Adult Medicine [address] [phone] Vi Serrano MD 12/27/2024 1:49 PM EDT - 12/27/2024 11:59 PM EDT Hospital Encounter [address] [phone] Left elbow pain Discharge Disposition: Home or Self Care 12/27/2024 1:00 PM EDT Office Visit Adult Medicine [address] [phone] Vi Serrano MD Type 2 diabetes mellitus with diabetic microalbuminuria, without long-term current use of insulin (CMS/HCC V24, CMS/HCC V28) (Primary Dx); Spastic hemiplegia of left nondominant side as late effect of cerebral infarction (CMS/HCC V24, CMS/HCC V28); Cerebral infarction due to embolism of right middle cerebral artery (CMS/HCC V24, CMS/HCC V28); Hyperlipidemia LDL goal <70; Anxiety and depression; Gastroesophageal reflux disease without esophagitis; Chronic midline low back pain without sciatica; Benign prostatic hyperplasia with urinary frequency; Cardiac pacemaker in situ; Central pain syndrome; COPD with asthma (CMS/HCC V24, CMS/HCC V28); Sick sinus syndrome (CMS/HCC V24, CMS/HCC V28); Obesity (BMI 30-39.9); Overflow incontinence of urine; Positive colorectal cancer screening using Cologuard test; Type 2 diabetes mellitus with neurological manifestations, controlled (CMS/HCC V24, CMS/HCC V28); Typical atrial flutter (CMS/HCC V24, CMS/HCC V28); Vitamin D deficiency; Left elbow pain; Hepatic steatosis; Allergic rhinitis, unspecified seasonality, unspecified trigger; Need for prophylactic vaccination and inoculation against influenza 12/23/2024 7:55 AM EDT Ancillary Procedure [facility] - [facility] [address] [facility] [address] [place] [address] 12/23/2024 Telephone Adult Medicine [address] [phone] Martha Beatty [place] 11/04/2024 1:00 PM EDT Office Visit Adult Medicine [address] [phone] [place] Type 2 diabetes mellitus with neurological manifestations, controlled (CMS/HCC V24, CMS/HCC V28) (Primary Dx); Type 2 diabetes mellitus with diabetic microalbuminuria, without long-term current use of insulin (CMS/HCC V24, CMS/HCC V28); Hyperlipidemia LDL goal <70; Typical atrial flutter (CMS/HCC V24, CMS/HCC V28); Cerebral infarction due to embolism of right middle cerebral artery (CMS/HCC V24, CMS/HCC V28); Central pain syndrome; COPD with asthma (CMS/HCC V24, CMS/HCC V28); Gastroesophageal reflux disease without esophagitis; Anxiety and depression; Benign prostatic hyperplasia with urinary frequency; Vitamin D deficiency 10/28/2024 11:20 AM EDT Office Visit [facility] - [facility] [address] [facility] [address] [place] [id number] Lakesha Ramirez MD Typical atrial flutter (CMS/HCC V24, CMS/HCC V28) (Primary Dx); Afib (CMS/HCC V24, CMS/HCC V28); Pacemaker; Hx of completed stroke; Abnormal EKG; Cardiac pacemaker in situ from Last 3 Months Immunizations Immunization Administration Dates Next Due Influenza trivalent, 0.5mL ( Fluad) 65yo and older 12/27/2024,02/19/2024 Influenza trivalent, 0.5mL ( Fluzone High-dose) 65yo and older 01/16/2023,11/30/2021,04/12/2021,12/09 Pfizer (ages 12 & older) Biv alent, COVID-19 03/14/2022 Pneumococcal conjugate 20 va lent (Prevnar 20, PCV 20) 2mo and older 01/16/2023 Pneumococcal polysaccharide 23 valent (Pneumovax 23) 2yo and older 11/30/2021 Tdap Tetanus diptheria acell ular pertussis (Boostrix; Adacel) 7yo and older 04/12/2021 Surgical History Surgery Date Site/Laterality Comments TONSILLECTOMY PROCEDURE: HISTORICAL TONSILLECTOMY Medical History Medical History Date Comments Back pain 07/12/2008 DX:Back pain; CO MMENT: Chronic, sees PSS Dyslexia DX:Dyslexia; COM MENT: per patient's history Smoker 10/13/2014 DX:Smoker Hernia of abdominal cavity 10/13/2014 DX:He rnia of abdominal cavity Hernia of abdominal cavity 10/13/2014 DX:He rnia of abdominal cavity Sepsis ([facility] V24, [facility] V28) 09/23/2018 pseudomonas aeruginosa infection Cerebrovascular accident ([facility] V24, [facility] V28) 09/23/2018 Pain 10/08/2018 Paroxysmal A-fib ([facility] V2 4, [facility] V28) 01/04/2019 Acute urinary tract infection 09/23/2018 Depressive disorder 09/23/2018 CVA (cerebral vascular accid ent) ([facility] V24, [facility] V28) Family History Medical History Relation Name Comments Coronary artery disease Mother Relation Name Status Comments Brother Alive Father stroke Mother cabg Sister Alive Social History Tobacco Use Types Packs/Day Years Used Date Smoking Tobacco: Former Cigarettes 1 52.9 S tarted: 03/03/1973 Smokeless Tobacco: Never Tobacco Cessation:Counseling Given: Not Answered Alcohol Use Standard Drinks/Week Comments Yes 0 [...] Record ed Within the last 3 months, apurva suero many times did you visit the emergency [...] care for your loved ones. For example, child nutrition assistant or elderly care for an older adult? [...] PM EDT Sexual Orientation Not on file Obstetrics History Last Filed Vital Signs Vital Sign Reading Time Taken Comments Blood Pressure 130/60 01/19/2025 1:51 PM EST Pulse 105 01/19/2025 1:51 PM EST Temperature 36.3 C (97.4 F) 01/19/2025 1:51 PM EST Respiratory Rate 20 01/19/2025 1:51 PM EST Oxygen Saturation 95% 01/19/2025 1:51 PM EST Inhaled Oxygen Concentration - - Weight 118 kg (260 lb) 11/04/2024 12:46 PM EDT Height 177.8 cm (5' 10 ) 12/27/2024 12:59 PM EDT Body Mass Index 37.31 11/04/2024 12:46 PM EDT Plan of Treatment Upcoming Encounters Date Type Department Care Team (Late st Contact Info) Description 03/31/2025 12:45 PM EST Office Visit Adult Medicine [facility] [address] [place] [address] Vi Serrano MD [address] [place], [place] 07/20/2025 1:00 PM EDT Office Visit Pulmonology - [address] [place] [id number] Reza Pemberton MD [address] [place] [phone] Health Maintenance Due Date Last Done Comments Colorectal Cancer Screening: Colonoscopy 1954 RSV Immunization Adult Patients (1 - Risk 50-74 years 1-dose series) 2004 Zoster Vaccines (1 of 2) 2004 Medicare Annual Wellness Visit 10/15/2024 10/16/2023 COVID-19 Vaccine ( season) 2024 02/21/2023, 03/14/2022, 02/21/2021, Additional history exists Diabetes: Blood Sugar Control Test (HGBA1C) 05/04/2025 11/04/2024, 07/02/2024, 02/19/2024, Additional history exists Diabetes: Annual Urine Albumin-Creatinine Ratio (uACR) 07/05/2025 07/05/2024, 02/20/2023 Diabetes: Annual GFR (Glomerular Filtration Rate) 11/04/2025 11/04/2024, 07/02/2024, 02/19/2024, Additional history exists Falls Risk Assessment 11/04/2025 11/04/2024 Diabetes: Annual Retina Eye Exam 12/01/2025 12/01/2024, 05/01/2024 Social Influencers of Health Screening 01/04/2026 01/04/2025 Cholesterol Screening (Lipid Panel) 11/04/2029 11/04/2024, 10/16/2023, 10/16/2023 DTaP,Tdap,and Td Vaccines (2 - Td or Tdap) 04/12/2031 04/12/2021 Hepatitis C Screening Completed 12/13/2020 Pneumococcal Vaccine: 50+ Years Completed 01/16/2023, 11/30/2021 Abdominal Aortic Aneurysm (AAA) Screen Completed 07/21/2024 Depression Screening Completed 10/28/2024, 10/16/19 Influenza Vaccine Completed 12/27/2024, , 01/16/2023, Additional history exists Diabetes: Annual Foot Exam Discontinued HIB Vaccines Aged Out No longer eligi ble based on patient's age to complete this topic HPV Vaccines Aged Out No longer eligi ble based on patient's age to complete this topic Hepatitis A Vaccines Aged Out No long er eligible based on patient's age to complete this topic Hepatitis B Vaccines Aged Out No long er eligible based on patient's age to complete this topic IPV Vaccines Aged Out No longer eligi ble based on patient's age to complete this topic MMR Vaccines Aged Out No longer eligi ble based on patient's age to complete this topic Meningococcal ACWY Vaccine Aged Out N o longer eligible based on patient's age to complete this topic Meningococcal B Vaccine Aged Out No l onger eligible based on patient's age to complete this topic RSV Immunization Patients Under 20 months Aged Out No longer eligible based on patient's age to complete this topic Varicella Vaccines Aged Out No longer eligible based on patient's age to complete this topic Goals Goal Patient Goal Type Associated Problems Recent Progress Patient-Stated? Author Patient has access to needed care General Cheyenne [place], MATTHIAS Medical Devices Implanted Type Area Tower Cleaner Device Identifier Shelf Expiration Date Model / Serial / Lot Ulises Mendoza 8 Dolores [id number] Implanted:08/02 (Quantity not on file) Cardiac Pacemaker [employer] / [id number] / Procedures Procedure Name Priority Date/Time Associated Diagnosis Comments XR ELBOW 3+ VIEWS LEFT Routine 12/27/2024 1:58 PM EDT Left elbow pain CARDIAC DEVICE CHECK- REMOTE- MURJ Routine 12/23/2024 7:50 AM EDT EXTERNAL DIABETIC RETINA EYE EXAM 12/01/2024 COMPREHENSIVE METABOLIC PANEL Routine 11/04/2024 1:29 PM EDT Type 2 diabetes mellitus with neurological manifestations, controlled (CMS/HCC V24, CMS/HCC V28) HEMOGLOBIN A1C Routine 11/04/2024 1:29 PM EDT Type 2 diabetes mellitus with neurological manifestations, controlled (CMS/HCC V24, CMS/[facility] V28) LIPID PANEL WITH REFLEX TO DIRECT LDL Routine 11/04/2024 1:29 PM EDT Type 2 diabetes mellitus with neurological manifestations, controlled ([facility] V24, CMS/[facility] V28) VITAMIN D 25 HYDROXY Routine 11/04/2024 1:29 PM EDT Vitamin D deficiency ECG 12-LEAD Routine 10/28/2024 11:18 AM EDT Afib (CMS/[facility] V24, CMS/[facility] V28) Pacemaker Hx of completed stroke Abnormal EKG US ABDOMEN AORTIC ANEURYSM SCREENING Routine 07/21/2024 11:49 AM EDT Encounter for abdominal aortic aneurysm (AAA) screening MICROALBUMIN CREATININE URINE RATIO Routine 07/05/2024 9:23 AM EDT Paroxysmal atrial fibrillation (CMS/HCC V24, CMS/HCC V28) Type 2 diabetes mellitus with diabetic microalbuminuria, without long-term current use of insulin (CMS/[facility] V24, CMS/HCC V28) DEPRESSION SCREENING Routine 10/16/2023 HEPATITIS C SCREENING Routine 12/13/2020 from Last 3 Months or Most Recently Relevant to Health Maintenance Results * XR Elbow 3+ Views Left (12/27/2024 1:58 PM EDT) Anatomical Region Laterality Modality Upper Extremities, Elbow Left Radiogr aphic Imaging 12/27/2024 11:0 8 PM EDT Narrative 12/27/2024 11:10 PM EDT Left elbow, 3 views. History left elbow pain. There is no visible displaced fractures or dislocations. There is no periarticular soft tissue calcifications. There is a small joint effusion. There is small osteophytes arising from the olecranon process. There is possible erosion of the medial aspect of the proximal ulna. CONCLUSIONS: Small effusion. Degenerative changes in the radial humeral joint with possible erosion of the medial aspect of the proximal ulna. -------- FINAL REPORT -------- Dictated By: Calista Theodore Dictated Date: 12/27/2024 23:08 ET Assigned Physician: Calista Theodore Reviewed and Electronically Signed By: Calista Theodore Signed Date: 12/27/2024 23:10 ET Workstation ID: [id number] Transcribed By: Self Edit Transcribed Date: 12/27/2024 23:08 ET Procedure Note Calista Theodore MD - 12/27/2024 Left elbow, 3 views. History left elbow pain. There is no visible displaced fractures or dislocations. There is noperiarticular soft tissue calcifications. There is a small joint effusion.There is small osteophytes arising from the olecranon process. There ispossible erosion of the medial aspect of the proximal ulna. CONCLUSIONS: Small effusion. Degenerative changes in the radial humeraljoint with possible erosion of the medial aspect of the proximal ulna. -------- FINAL REPORT -------- Dictated By: Claista Theodore Dictated Date: 12/27/2024 23:08 ET Assigned Physician: Calista Theodore Reviewed and Electronically Signed By: Calista Theodore Signed Date: 12/27/2024 23:10 ET Workstation ID: [id number] Transcribed By: Self Edit Transcribed Date: 12/27/2024 23:08 ET Vi Serrano MD IMG XR PROCEDURE S Final Result * Cardiac device check - Remote- MURJ (12/23/2024 7:50 AM EDT) Date Time Interrogation Session [id number] CV DEVICE CHECK Type Interrogation Session Remote CV DEVICE CHECK Implantable Pulse Generator Tower Cleaner BIO CV DEVICE CHECK Implantable Pulse Generator Type IPG CV DEVICE CHECK Implantable Pulse Generator Model Edora 8 DR-T CV DEVICE CHECK Implantable Pulse Generator Serial Number [id number] CV DEVICE CHECK Implantable Pulse Generator Implant Date [id number] CV DEVICE CHECK Battery Remaining Percentage 45.00 CV DEVICE CHECK Battery Status Middle of Service CV DEVICE CHECK David Statistic RA Percent Paced 32.00 CV DEVICE CHECK David Statistic RV Percent Paced 47.00 CV DEVICE CHECK Atrial Tachy Statistic AT/AF [place] Percent 61.00 CV DEVICE CHECK Lead Channel Sensing Intrinsic Amplitude 4.400 CV DEVICE CHECK Lead Channel Impedance Value 527 CV DEVICE CHECK Lead Channel RA Pacing Threshold Date 2024-12-11 CV DEVICE CHECK Lead Channel Setting Pacing Amplitude 2.000 CV DEVICE CHECK Lead Channel Setting Pacing Pulse Width 0.4 CV DEVICE CHECK Lead Channel Sensing Intrinsic Amplitude 10.600 CV DEVICE CHECK Lead Channel Impedance Value 605 CV DEVICE CHECK Lead Channel RV Pacing Threshold Date 2024-12-11 CV DEVICE CHECK Lead Channel Setting Pacing Amplitude 2.000 CV DEVICE CHECK Lead Channel Setting Pacing Pulse Width 0.4 CV DEVICE CHECK David Setting Mode (NBG Code) DDD-CLS CV DEVICE CHECK David Setting Lower Rate Limit 60 CV DEVICE CHECK David Setting AT Mode Switch Rate 160 CV DEVICE CHECK David Setting Maximum Tracking Rate 130 CV DEVICE CHECK David Setting Maximum Sensor Rate 120 CV DEVICE CHECK David Setting PAV Delay 170 CV DEVICE CHECK David Setting CAROLYN Delay 150 CV DEVICE CHECK Date of Service 2024-12-28 CV DEVICE CHECK Anatomical Region Laterality Modality Device Interroga tion 12/10/2024 6:17 PM EDT Impressions 12/23/2024 7:47 AM EDT Normal Remote: No Events * Normal Device Function * Alerts or events: None * Battery: Battery is at 45%, * Sensing, impedance and thresholds reviewed * Programmed parameters reviewed * Presenting rhythm reviewed * Heart Rate Histograms reviewed * No significant changes noted Narrative Procedure Note Daniel Solorio MD - 12/23/2024 IMPRESSION: Normal Remote: No Events * Normal Device Function * Alerts or events: None * Battery: Battery is at 45%, * Sensing, impedance and thresholds reviewed * Programmed parameters reviewed * Presenting rhythm reviewed * Heart Rate Histograms reviewed * No significant changes noted us Daniel Solorio MD CV IMPLANTABLE CARDIAC DEVICE PROCEDURES Final Result * External Diabetic Retina Eye Exam Report (12/01/2024) Anatomical Region Laterality Modality Ultrasound us Provider [facility] US PROCEDURES Final Result * (ABNORMAL) Lipid panel with reflex to direct LDL (11/04/2024 1:29 PM EDT) Cholesterol 114 0 - 200 mg/dL LAB CHEMISTRY METHOD 11/04/2024 5:10 PM EDT [facility] Triglycerides 123 0 - 150 mg/dL LAB CHEMISTRY METHOD 11/04/2024 5:10 PM EDT [facility] HDL 38(L) >=40 mg/dL LAB CHEMISTRY METHOD 11/04/2024 5:10 PM [facility] LDL Calculated 51 0 - 100 mg/dL LAB CHEMISTRY METHOD 11/04/2024 5:10 PM [facility] Comment:Estimated LDL Calcul ated using equation: Total cholesterol - HDL cholesterol - (Triglycerides/5) VLDL Cholesterol Francisco 24.6 mg/dL LAB CHEMISTRY METHOD 11/04/2024 5:10 PM T [facility] Non HDL Chol. (LDL+VLDL) 76 <145 mg/dL LAB CHEMISTRY METHOD 11/04/2024 5:10 PM T [facility] Chol/HDL Ratio 3.0 0.0 - 4.4 LAB CHEMISTRY METHOD 11/04/2024 5:10 PM [facility] Blood Venous blood specimen / Unknown Venipuncture / Unknown 11/04/2024 1:29 PM EDT 11/04/2024 1:29 PM EDT us [facility]ike [facility] LAB BLOOD ORDERABLES Final Re sult Performing Organization Address [facility]/ZIP Co de Phone Number [facility] [address] [place] [address], [place] [phone] * Vitamin D 25 hydroxy (11/04/2024 1:29 PM EDT) [facility] Vit D, 25-Hydroxy 53.4 30.0 - 80.0 ng/mL LAB CHEMISTRY METHOD 11/04/2024 5:38 PM EDT [facility] Blood Venous blood specimen / Unknown Venipuncture / Unknown 11/04/2024 1:29 PM EDT 11/04/2024 1:29 PM EDT us Heike [employer] LAB BLOOD ORDERABLES Final Re sult Performing Organization Address [facility] Co de Phone Number [facility] [address] [place] [address], [place] [phone] * (ABNORMAL) Hemoglobin A1c (11/04/2024 1:29 PM EDT) [facility] Hemoglobin A1C 6.5(H) <6.5 % LAB CHEMISTRY METHOD 11/04/2024 9:19 PM EDT [facility] Mean Bld Glu Estim. 140 mg/dL LAB CHEMISTRY METHOD 11/04/2024 9:19 PM EDT [facility] Blood Venous blood specimen / Unknown Venipuncture / Unknown 11/04/2024 1:29 PM EDT 11/04/2024 1:29 PM EDT us Heike [employer] LAB BLOOD ORDERABLES Final Re sult Performing Organization Address [facility]/ZIP Co de Phone Number [facility] [address] [place] [address], [place] [phone] * (ABNORMAL) Comprehensive metabolic panel (11/04/2024 1:29 PM EDT) Sodium 138 133 - 145 mmol/L LAB CHEMISTRY METHOD 11/04/2024 5:10 PM [facility] Potassium 4.1 3.5 - 5.5 mmol/L LAB CHEMISTRY METHOD 11/04/2024 5:10 PM [facility] Chloride 107 96 - 110 mmol/L LAB CHEMISTRY METHOD 11/04/2024 5:10 PM [facility] CO2 27 21 - 32 mmol/L LAB CHEMISTRY METHOD 11/04/2024 5:10 PM [facility] Anion Gap 4 3 - 11 LAB CHEMISTRY METHOD 11/04/2024 5:10 PM [facility] Glucose 118(H) 70 - 100 mg/dL LAB CHEMISTRY METHOD 11/04/2024 5:10 PM [facility] BUN 14 5 - 25 mg/dL LAB CHEMISTRY METHOD 11/04/2024 5:10 PM [facility] Creatinine 1.20 0.70 - 1.30 mg/dL LAB CHEMISTRY METHOD 11/04/2024 5:10 PM [facility] eGFR 65 >=60 mL/min/1. 73m2 LAB CHEMISTRY METHOD 11/04/2024 5:10 PM [facility] Comment:Calculation based on the Chronic Kidney Disease Epidemiology Collaboration (CKD-EPI) equation refit without adjustment for race. BUN/Creatinine Ratio 11.7 LAB CHEMISTRY METHOD 11/04/2024 5:10 PM [facility] Calcium 8.7 8.5 - 10.5 mg/dL LAB CHEMISTRY METHOD 11/04/2024 5:10 PM [facility] AST (SGOT) 20 10 - 42 unit/L LAB CHEMISTRY METHOD 11/04/2024 5:10 PM [facility] ALT (SGPT) 44 10 - 60 unit/L LAB CHEMISTRY METHOD 11/04/2024 5:10 PM EDT [facility] Alkaline Phosphatase 92 42 - 121 unit/L LAB CHEMISTRY METHOD 11/04/2024 5:10 PM EDT [facility] Total Protein 6.6 6.0 - 8.0 g/dL LAB CHEMISTRY METHOD 11/04/2024 5:10 PM EDT [facility] Albumin 3.4 3.2 - 5.0 g/dL LAB CHEMISTRY METHOD 11/04/2024 5:10 PM EDT [facility] Total Bilirubin 0.4 0.0 - 1.4 mg/dL LAB CHEMISTRY METHOD 11/04/2024 5:10 PM EDT [facility] Blood Venous blood specimen / Unknown Venipuncture / Unknown 11/04/2024 1:29 PM EDT 11/04/2024 1:29 PM EDT [facility] LAB BLOOD ORDERABLES Final Re sult [facility] [address] [place] [address], [place] [phone] * ECG 12 lead (10/28/2024 11:18 AM EDT) Ventricular Rate ECG 117 BPM GEMUSE Atrial Rate 120 BPM GEMUSE QRS Duration 152 ms GEMUSE Q-T Interval 390 ms GEMUSE QTc 544 ms GEMUSE R [place] 134 degrees GEMUSE T [place] 4 degrees GEMUSE ECG Interpretation possible afib vs atrial flutter with v paced rhythm When compared with ECG of 16-JUL-2023 11:27, Vent. rate has increased BY 42 BPM Confirmed by LAKESHA RAMIREZ ([id number]) on 10/28/2024 3:50:19 PM GEMUSE 10/28/2024 11:1 8 AM EDT 10/28/2024 3:50 PM EDT Lakesha Ramirez MD ECG ORDERABLES Final Result GEMUSE * US Abdomen Aortic Aneurysm Screening (07/21/2024 11:49 AM EDT) Anatomical Region Laterality Modality Abdominal aorta Ultrasound 07/22/2024 8:26 AM EDT Impressions 07/22/2024 8:38 AM EDT Limited study. The mid aorta is obscured. No aneurysm demonstrated. Brief targeted review of CT 07/14/23 demonstrated a maximum external diameter of the distal abdominal aorta of 3.2 cm. -------- FINAL REPORT -------- Dictated By: Doug Heart Dictated Date: 07/22/2024 08:26 ET Assigned Physician: Doug Heart Reviewed and Electronically Signed By: Doug Heart Signed Date: 07/22/2024 08:38 ET Workstation ID: [id number] Transcribed By: Self Edit Transcribed Date: 07/22/2024 08:26 ET Narrative 07/22/2024 8:38 AM EDT EXAM: Abdominal aortic aneurysm screening. History of smoking TECHNIQUE: Grayscale evaluation of the abdominal aorta. COMPARISON: Selected portions of a CT 07/14/23. FINDINGS: Ultrasound of the aorta was obtained. QUALITY: The study is limited. Body habitus and bowel gas obscures some of the abdominal aorta. The patient was scanned supine in a reclining wheelchair. PROXIMAL AORTIC MEASUREMENTS- CURRENT: 3.0 x 3.0 cm PREVIOUS: None MID AORTIC MEASUREMENTS- CURRENT: Obscured PREVIOUS: None DISTAL AORTIC MEASUREMENTS- CURRENT: 2.6 x 3.0 cm PREVIOUS: None Maximum aneurysmal dimensions- Location- not visualized Right common iliac diameter: 1.6 cm Left common iliac diameter: 1.6 cm Other significant findings: No large retroperitoneal mass or collection demonstrated Procedure Note Doug Heart MD - 07/22/2024 EXAM: Abdominal aortic aneurysm screening. History of smoking TECHNIQUE: Grayscale evaluation of the abdominal aorta. COMPARISON: Selected portions of a CT 07/14/23. FINDINGS: Ultrasound of the aorta was obtained. QUALITY: The study is limited. Body habitus and bowel gas obscures someof the abdominal aorta. The patient was scanned supine in a recliningwheelchair. PROXIMAL AORTIC MEASUREMENTS- CURRENT: 3.0 x 3.0 cm PREVIOUS: None MID AORTIC MEASUREMENTS- CURRENT: Obscured PREVIOUS: None DISTAL AORTIC MEASUREMENTS- CURRENT: 2.6 x 3.0 cm PREVIOUS: None Maximum aneurysmal dimensions- Location- not visualized Right common iliac diameter: 1.6 cm Left common iliac diameter: 1.6 cm Other significant findings: No large retroperitoneal mass or collectiondemonstrated IMPRESSION: Limited study. The mid aorta is obscured. No aneurysm demonstrated. Brief targeted review of CT 07/14/23 demonstrated a maximum externaldiameter of the distal abdominal aorta of 3.2 cm. -------- FINAL REPORT -------- Dictated By: Doug Heart Dictated Date: 07/22/2024 08:26 ET Assigned Physician: Doug Heart Reviewed and Electronically Signed By: Doug Heart Signed Date: 07/22/2024 08:38 ET Workstation ID: [id number] Transcribed By: Self Edit Transcribed Date: 07/22/2024 08:26 ET Vi Serrano MD [facility] US PROCEDURE S Final Result * Microalbumin creatinine urine ratio (07/05/2024 9:23 AM EDT) Creatinine, Urine 86.0 mg/dL LAB CHEMISTRY METHOD 07/05/2024 11:32 AM EDT [facility] Microalb, Ur 12.5 0.0 - 29.0 mg/L LAB CHEMISTRY METHOD 07/05/2024 11:32 AM EDT [facility] Microalb/Creat Ratio 15 <30 mg/g creat LAB CHEMISTRY METHOD 07/05/2024 11:32 AM T [facility] Urine Urine specimen obtained by clean catch procedure / Unknown Non-blood Collection / Unknown 07/05/2024 9:23 AM EDT 07/05/2024 9:23 AM EDT us Vi Serrano MD LAB URINE ORDERA BLES Final Result [facility] [address] [place] [address], [place] [phone] * Depression Screening (10/16/2023) Depression Screening Abstracted Historical Provider HEALTH MAINTENANCE Final Result * Hepatitis C Screening (12/13/2020) Hepatitis C Screening Abstracted Historical Provider HEALTH MAINTENANCE Final Result from Last 3 Months or Most Recently Relevant to Health [place] [phone] MEDICARE [place]ICAID [place] Advance Directives Documents on File Type Date Recorded Patient Cray Fishing Hand Expl anation Health Care Decision (hx) 07/17/2023 AD JIANG DIRECTIVE Health Care Decision (hx) 07/17/2023 AD JIANG DIRECTIVE Care Teams Nuclear Weapons Custodian Relationship Specialty Start Date End Date Vi Serrano MD [address], [place] PCP - General Internal Medicine 09/25/21
--- OUTSIDE RECORDS SUMMARY | 2025-01-25 17:11 | XMS_ITS ---
Author Name [facility] Organization Unknown Care Team Organization Name Specialty Phone Email Start Date End Da te [facility] ACO 10/20/2024 [facility] PASQUALE SUMMERS Primary Care [email or web address] 11/07/2022 4 [facility] Leah Bennett Primary Care 08/09/2022 4 [facility] HAFSA Ng Primary Care 01/08/202210/01 4
== END 2025-01-25 13:48 | disposition home or self-care (01) ==
LOC: HO.HSM 13:20
PROVIDERS: PCP Family Medicine; Visit Provider Psychiatry & Neurology Neurology
DX: G40.209 Localization-related (focal) (partial) symptomatic epilepsy and epileptic syndromes with complex partial seizures, not intractable, without status epilepticus (principal); G81.94 Hemiplegia, unspecified affecting left nondominant side; I63.411 Cerebral infarction due to embolism of right middle cerebral artery; R25.2 Cramp and spasm; G47.01 Insomnia due to medical condition; R25.1 Tremor, unspecified; M79.2 Neuralgia and neuritis, unspecified
CPT/HCPCS: 99214

== ENCOUNTER → 2025-01-25 13:19 | Outpatient (BNVA) | payer MEDICARE, MEDICAID, SELFPAY | PROVIDERS: PCP Family Medicine; Visit Provider Psychiatry & Neurology Neurology | DX: G40.209 Localization-related (focal) (partial) symptomatic epilepsy and epileptic syndromes with complex partial seizures, not intractable, without status epilepticus (principal); G47.01 Insomnia due to medical condition; I63.411 Cerebral infarction due to embolism of right middle cerebral artery; G81.94 Hemiplegia, unspecified affecting left nondominant side; R25.2 Cramp and spasm; R25.1 Tremor, unspecified; M79.2 Neuralgia and neuritis, unspecified | CPT/HCPCS: 99212 ==